=== PATIENT | female | born 1985 | race Caucasian/White ===

== ENCOUNTER 2016-06-18 18:30 | Emergency (ER) | payer OTHER ==
[~2016-06-18 18:30] MED LIST: FERR325T3 PO; LABE20TAB PO; LOVE1INJ SC; NEXI40CA PO; PERC5TAB6 PO; [UNRECOGNIZED DRUG - CODE] IJ; asprin PO; prenatal vitamins PO; vitamin B12 PO
[2016-06-18] MEDS ORDERED: ACETAMINOPHEN 325 MG TAB As Ordered ONE (19:22)
[2016-06-18 20:04] LABS: BASO % 0.3 % (0.0-1.0); EOS % 0.6 % (0.0-3.0); LARGE UNSTAINED CELL # 0.1 K/mm3 (0.0-0.4); LARGE UNSTAINED CELL % 1.2 % (0.0-4.0); LYMPH # 1.1 K/mm3 (1.5-4.5); LYMPH % 12.3 % (24.0-44.0); MEAN CORPUSCULAR HEMOGLOBIN 21.6 pg (27.0-33.0); MEAN CORPUSCULAR HGB CONC 30.3 g/dl (32.0-36.5); MEAN CORPUSCULAR VOLUME 71.3 fl (80.0-96.0); MONO # 0.3 K/mm3 (0.0-0.8); MONO % 3.7 % (0.0-5.0); NEUTROPHILS # 7.3 K/mm3 (1.8-7.7); NEUTROPHILS % 81.9 % (36.0-66.0); PLATELET COUNT, AUTOMATED 297 k/mm3 (150-450); RED CELL DISTRIBUTION WIDTH 14.8 % (11.5-14.5)
--- NOTE | 2016-06-18 20:07 | ECGEPIP ---
Stationary ECG Study [facility] - ED Test Date: 2016-06-18 Pat Name: KOURTNEY HESS Department: Room: - Gender: F Tumbler Operator: nadira : 1985 Requested By: YUKO Gomez Order Number: [id number] Reading MD: Kourtney Neri Measurements Intervals [place] Rate: 103 P: 51 GA: 148 QRS: 50 QRSD: 82 T: 41 QT: 312 QTc: 410 Interpretive Statements SINUS TACHYCARDIA ABNORMAL RHYTHM ECG Electronically Signed On 06-18-2016 20:07:01 EST by Kourtney Neri
[2016-06-18 20:08] LABS: ANION GAP 8 MEQ/L (8-16); BLOOD UREA NITROGEN 11 MG/DL (7-18); CALCIUM LEVEL 9.5 MG/DL (8.5-10.1); CARBON DIOXIDE LEVEL 27 MEQ/L (21-32); CHLORIDE LEVEL 103 MEQ/L (98-107); CREATININE FOR GFR 0.86 MG/DL (0.55-1.02); GLOMERULAR FILTRATION RATE > 60.0 (>60); GLUCOSE, FASTING 100 MG/DL (70-105); POTASSIUM SERUM 3.9 MEQ/L (3.5-5.1); SODIUM LEVEL 138 MEQ/L (136-145)
--- NOTE | 2016-06-18 21:18 | EDDOCDS ---
Nurse's Notes [facility] Name: Kourtney Hess Age: 30 yrs Sex: Female : 1985 Arrival Date: 06/18/2016 Time: 18:30 Bed 20 Private MD: TEENA CHEEK Diagnosis: Acute upper respiratory infection, unspecified-viral;Anemia, unspecified-microcytic Presentation: 06/18 18:36 Presenting complaint: Patient states: reports dizziness, "feels like I'm gonna pass ead out." Reports sob and chest pain. onset of symptoms "a few months ago," worsening today. "I just feel off, real nauseated.". 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 Adult Sepsis Screening: The patient does not have new or worsening altered mentation. Patient's respiratory rate is less than 22. Systolic blood pressure is greater than 100. Patient has a qSOFA score of 0- Negative Sepsis Screen. Suicide/Homicide risk assessment- the patient denies having any suicidal and/or homicidal ideations and does not present with any other emotional, behavioral or mental health complaints. Status: Patient is not a farm service consultant or dependent. Transition of care: patient was not received from another setting of care. 18:36 Acuity: AMELIA Level 3 ead 18:36 Method Of Arrival: Walkin/Carried/Asstd ead Triage Assessment: 18:39 General: Appears in no apparent distress, Behavior is cooperative. Pain: Location: ead chest Pain currently is 5 out of 10 on a pain scale. HIV screening NA for this visit Offered previously. Neurological: Level of Consciousness is awake, alert, Oriented to person, place, time. Neurological: Reports dizziness. Cardiovascular: Chest pain is denied is described as "real uncomfortable". radiates Does not radiate. episodes are intermittent began this morning. Respiratory: Airway is patent Respiratory effort is even, unlabored, Reports shortness of breath. GI: Reports nausea. Derm: Skin is pink, warm & dry. 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 aspirin 81 mg Oral tab once daily 2. hydroxychloroquine 200 mg oral tab once daily 3. vit b 12 1000 daily 4. omeprazole 20 mg Oral cpDR once daily 5. inhalers daily 6. labetalol 50 mg Oral tab 2 times per day - PMHx: Lupus; Hypertension; Asthma; - PSHx: D & C; Adenoidectomy; Tonsillectomy; Ear Tubes; Cesearean Section; - Social history: Smoking status: Patient states was never smoker of tobacco. No barriers to communication noted, The patient speaks fluent Bengali, Speaks appropriately for age. - Family history: No immediate family members are acutely ill. - : The pt / caregiver states he / she is not on anticoagulants. Home medication list is obtained from the patient, [employer] import data. - Exposure Risk Screening:: None identified. Screenin:45 Screening information is obtained from the patient. Fall risk: No risks identified. mb9 Assistance ADL's: requires no assistance with activities of daily living. Abuse/DV Screen: The patient / caregiver reports he/she is: not in a situation that causes fear, pain or injury. Nutritional screening: No deficits noted. Advance Directives: There is no active DNR order. home support is adequate. Assessment: 19:45 General: Appears in no apparent distress, Behavior is appropriate for age, cooperative. mb9 Pain: Denies pain. Neurological: Level of Consciousness is awake, alert, Oriented to person, place, time, Gait is steady, Speech is normal, Pupils are PERRLA. Neurological: Reports dizziness. Cardiovascular: Heart tones S1 S2 present. Respiratory: Airway is patent Respiratory effort is even, unlabored. 20:40 Reassessment: Patient appears in no apparent distress at this time. General: Appears in mb9 no apparent distress, Behavior is appropriate for age, cooperative. Pain: Denies pain. Respiratory: Airway is patent Respiratory effort is even, unlabored. Vital Signs: 18:32 BP 161 / 80; Pulse 108; Resp 18 S; Temp 100.5(O); Pulse Ox 100% on R/A; Weight 104.33 dd6 kg (R); Height 5 ft. 2 in. (157.48 cm) (R); 20:57 BP 131 / 60 (auto/); Pulse 92; Resp 17; Temp 99.5(O); Pulse Ox 98% on R/A; mb9 18:32 Body Mass Index 42.07 (104.33 kg, 157.48 cm) dd6 Vitals: 18:32 Log In Time: June 18, 2016 at 18:30. dd6 ED Course: 18:31 Patient visited by Vini Gomez PCA. dd6 18:31 Patient moved to Waiting dd6 18:32 TEENA CHEEK is Private Physician. dd6 18:32 Patient moved to Pre RCE dd6 18:35 Patient moved to PR2 / 26 rs6 18:38 Triage Initiated ead 18:41 EKG done. (by ED staff). Reviewed by Gavin GUARDADO. rs6 18:46 Patient moved to 20 mcp 18:53 Guido Cordova DO is Attending Physician. cs11 18:53 Patient visited by Guido Cordova DO. cs11 19:44 MED Profile Sent. mb9 19:44 CBC with Diff Sent. mb9 19:44 -Influenza A&B Rapid Antigen - Nose Sent. mb9 19:44 Lactic Acid (Bryant tube on ice) Sent. mb9 19:44 -Blood Culture Sent. mb9 19:45 The patient / caregiver is instructed regarding the plan of care and ED course. mb9 19:45 Inserted saline lock: 18 gauge in right antecubital area and blood collected. mb9 19:51 Patient visited by Gavin Bowling RN. mb9 19:51 [facility] Payment Agreement was scanned into [employer] and attached to record. jpb 20:33 EKG-ADULT Returned. EDMS 20:56 Patient visited by Shilpa Gupta, [employer] Plans Staff Officer. jlm 21:01 TEENA CHEEK is Referral Physician. cs11 21:16 Cardiac monitoring not applicable on this patient. mb9 21:16 Discontinued IV lock intact, bleeding controlled, pressure dressing applied, No mb9 redness/swelling at site. No procedures done that require assistance. Administered Medications: 19:44 Drug: NS 0.9% 1000 ml [sodium chloride 0.9 % intravenous solution] Route: IV; Rate: mb9 bolus; Site: left antecubital; 19:44 Drug: Acetaminophen 975 mg [acetaminophen 325 mg tablet (3 tabs)] Route: PO; mb9 Order Results: Lab Order: Lactic Acid (Bryant tube on ice); SPEC'M 06/18/16 19:40 Test: LACTIC ACID LEVEL, LACTATE; Value: 0.8; Range: 0.4-2.0; Units: MMOL/L; Status: F Lab Order: -Influenza A&B Rapid Antigen - Nose; SPEC'M 06/18/16 19:40 Test: INFLUENZA A RAPID SCR by ICA; Value: INFLUENZA A RESULTS NEGATIVE; Status: F Test: INFLUENZA A RAPID SCR by ICA; Value: Comments:; Status: F Test: INFLUENZA B RAPID SCR by ICA; Value: INFLUENZA B RESULTS NEGATIVE; Status: F Test Note: ; The Influenza test is a direct rapid immunoassay for the qualitative detection of Influenza viral antigen. Cell culture (Viral Culture) testing should be considered to confirm NEGATIVE results and to assist in detecting other viruses that can provide similar clinical symptoms. Please contact the lab within 24 hours ([phone]) if confirmatory testing is desired. Lab Order: CBC with Diff; SPEC'M 06/18/16 19:40 Test: WHITE BLOOD COUNT; Value: 9.0; Range: 4.0-10.0; Units: K/mm3; Status: F Test: RED BLOOD COUNT; Value: 3.86; Range: 4.00-5.40; Abnormal: Below low normal; Units: M/mm3; Status: F Test: HEMOGLOBIN; Value: 8.3; Range: 12.0-16.0; Abnormal: Below low normal; Units: g/dl; Status: F Test: HEMATOCRIT; Value: 27.5; Range: 36.0-47.0; Abnormal: Below low normal; Units: %; Status: F Test: MEAN CORPUSCULAR VOLUME; Value: 71.3; Range: 80.0-96.0; Abnormal: Below low normal; Units: fl; Status: F Test: MEAN CORPUSCULAR HEMOGLOBIN; Value: 21.6; Range: 27.0-33.0; Abnormal: Below low normal; Units: pg; Status: F Test: MEAN CORPUSCULAR HGB CONC; Value: 30.3; Range: 32.0-36.5; Abnormal: Below low normal; Units: g/dl; Status: F Test: RED CELL DISTRIBUTION WIDTH; Value: 14.8; Range: 11.5-14.5; Abnormal: Above high normal; Units: %; Status: F Test: PLATELET COUNT, AUTOMATED; Value: 297; Range: 150-450; Units: k/mm3; Status: F Test: NEUTROPHILS %; Value: 81.9; Range: 36.0-66.0; Abnormal: Above high normal; Units: %; Status: F Test: LYMPH %; Value: 12.3; Range: 24.0-44.0; Abnormal: Below low normal; Units: %; Status: F Test: MONO %; Value: 3.7; Range: 0.0-5.0; Units: %; Status: F Test: EOS %; Value: 0.6; Range: 0.0-3.0; Units: %; Status: F Test: BASO %; Value: 0.3; Range: 0.0-1.0; Units: %; Status: F Test: LARGE UNSTAINED CELL %; Value: 1.2; Range: 0.0-4.0; Units: %; Status: F Test: NEUTROPHILS #; Value: 7.3; Range: 1.8-7.7; Units: K/mm3; Status: F Test: LYMPH #; Value: 1.1; Range: 1.5-4.5; Abnormal: Below low normal; Units: K/mm3; Status: F Test: MONO #; Value: 0.3; Range: 0.0-0.8; Units: K/mm3; Status: F Test: EOS #; Value: 0.0; Range: 0.0-0.50; Units: K/mm3; Status: F Test: BASO #; Value: 0.0; Range: 0.0-0.2; Units: K/mm3; Status: F Test: LARGE UNSTAINED CELL #; Value: 0.1; Range: 0.0-0.4; Units: K/mm3; Status: F Lab Order: MED Profile; SPEC'M 06/18/16 19:40 Test: GLUCOSE, FASTING; Value: 100; Range: 70-105; Units: MG/DL; Status: F Test: BLOOD UREA NITROGEN; Value: 11; Range: 7-18; Units: MG/DL; Status: F Test: CREATININE FOR GFR; Value: 0.86; Range: 0.55-1.02; Units: MG/DL; Status: F Test: GLOMERULAR FILTRATION RATE; Value: > 60.0; Range: >60; Status: F Test: SODIUM LEVEL; Value: 138; Range: 136-145; Units: MEQ/L; Status: F Test: POTASSIUM SERUM; Value: 3.9; Range: 3.5-5.1; Units: MEQ/L; Status: F Test: CHLORIDE LEVEL; Value: 103; Range: 98-107; Units: MEQ/L; Status: F Test: CARBON DIOXIDE LEVEL; Value: 27; Range: 21-32; Units: MEQ/L; Status: F Test: ANION GAP; Value: 8; Range: 8-16; Units: MEQ/L; Status: F Test: CALCIUM LEVEL; Value: 9.5; Range: 8.5-10.1; Units: MG/DL; Status: F Test Note: ; Units are mL/min/1.73 m2 Chronic Kidney Disease Staging per NKF: Stage I & II GFR >=60 Normal to Mildly Decreased Stage III GFR 30-59 Moderately Decreased Stage IV GFR 15-29 Severely Decreased Stage V GFR <15 Very Little GFR Left ESRD GFR <15 on ADOLESCENT COUNSELOR Radiology Order: EKG-ADULT Test: EKG-ADULT REASON FOR EXAMINATION: Chest Pain; Stationary ECG Study; [facility] - ED; ; Test Date: 2016-06-18; Pat Name: KOURTNEY HESS Department:; Room: -; Gender: F It 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 cs11 21:16 Discharge Assessment: Patient awake, alert and oriented x 3. No cognitive and/or mb9 functional deficits noted. Patient verbalized understanding of disposition instructions. patient administered narcotics - no. The following High Risk Discharge criteria are identified: None. Discharged to home ambulatory. Condition: good Condition: stable Condition: improved. Discharge instructions given to patient, Instructed on discharge instructions, follow up and referral plans. medication usage, Demonstrated understanding of instructions, medications, Pt was receptive of discharge instructions/ teaching. No special radiology studies were completed. Property :Personal belongings accompany Pt. 21:17 Patient left the ED. alanis Signatures: Dispatcher [employer] Nancy Teague, RN RN Vini Brandon, ALUMNI SECRETARY ALUMNI SECRETARY dd6 Renny Gutierres Craig, DO cs11 Rosaura Graff,RN RN Shilpa Ford, [employer] Plans Staff Officer Unit Gavin Soto RN RN Joycelyn Webb, ALUMNI SECRETARY ALUMNI SECRETARY rs6 [facility]
--- NOTE | 2016-06-18 21:18 | EDDOCDS ---
Physician Documentation [facility] Name: Korutney Francisco Age: 30 yrs Sex: Female : 1985 Arrival Date: 06/18/2016 Time: 18:30 Bed 20 Private MD: TEENA CHEEK Disposition: 06/18/16 21:02 Discharged to Home/Self Care. Impression: Acute upper respiratory infection, unspecified - viral, Anemia, unspecified - microcytic. - Condition is Stable. - Medication Reconciliation, Local Pharmacy Hours form. - Follow up: TEENA CHEEK; When: 1 - 2 days; Reason: Recheck today's complaints. - Problem is chronic. - Symptoms are unchanged. Historical: - Allergies: SULFA (SULFONAMIDES) (Rash); - Home Meds: 1. aspirin 81 mg Oral tab once daily 2. hydroxychloroquine 200 mg oral tab once daily 3. vit b 12 1000 daily 4. omeprazole 20 mg Oral cpDR once daily 5. inhalers daily 6. labetalol 50 mg Oral tab 2 times per day - PMHx: Lupus; Hypertension; Asthma; - PSHx: D & C; Adenoidectomy; Tonsillectomy; Ear Tubes; Cesearean Section; - Social history: Smoking status: Patient states was never smoker of tobacco. No barriers to communication noted, The patient speaks fluent Pashto, Speaks appropriately for age. - Family history: No immediate family members are acutely ill. - : The pt / caregiver states he / she is not on anticoagulants. Home medication list is obtained from the patient, [employer] import data. - Exposure Risk Screening:: None identified. 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 2 in. (157.48 cm) (R); 20:57 BP 131 / 60 (auto/); Pulse 92; Resp 17; Temp 99.5(O); Pulse Ox 98% on R/A; mb9 18:32 Body Mass Index 42.07 (104.33 kg, 157.48 cm) dd6 MDM: 18:36 ECG WITH READING ER PHYS+CARDIAG ordered. EDMS 18:57 Chest, 2 View (pa\E\lat) Ordered. EDMS 19:17 IV Saline Lock ordered. cs11 19:17 -Blood Culture (Adults Only), peripheral from different site, or from device/port/PICC cs11 etc. if present ordered. 19:17 NS 0.9% 1000 ml IV at bolus once ordered. cs11 19:17 Acetaminophen Tablet 975 mg PO once ordered. cs11 19:18 -Blood Culture (Adults Only), peripheral from different site, or from device/port/PICC sew etc. if present complete. 19:18 Lactic Acid (Bryant tube on ice) Ordered. EDMS 19:18 CBC with Diff Ordered. EDMS 19:18 MED Profile Ordered. EDMS 19:18 -Blood Culture Ordered. EDMS 19:18 -Influenza A&B Rapid Antigen - Nose Ordered. EDMS 19:21 BLOOD CULTURES Ordered. EDMS 19:51 Financial registration complete. jpb 19:51 [facility] Payment Agreement was scanned into [employer] and attached to record. jpb 20:36 CBC with Diff Reviewed. cs11 20:36 Lactic Acid (Bryant tube on ice) Reviewed. cs11 20:36 -Influenza A&B Rapid Antigen - Nose Reviewed. cs11 20:36 MED Profile Reviewed. cs11 20:36 EKG-ADULT Reviewed. cs11 Administered Medications: 19:44 Drug: NS 0.9% 1000 ml [sodium chloride 0.9 % intravenous solution] Route: IV; Rate: mb9 bolus; Site: left antecubital; 19:44 Drug: Acetaminophen 975 mg [acetaminophen 325 mg tablet (3 tabs)] Route: PO; mb9 Signatures: Dispatcher [employer] EDMS Renny Gutierres Sarah sew Schiff, Craig, DO DO cs11 Rosaura Graff RN RN Gavin Castellanos RN RN mb9 The chart was reviewed and I authenticate all verbal orders and agree with the evaluation and treatment provided.Attachments: 19:51 [facility] Payment Agreement jpb MTDD
--- NOTE | 2016-06-18 21:49 | REP ---
Clinical: Acute cough . Comparison: 07/03/2015 . Technique: PA and lateral. Findings: The mediastinum and cardiac silhouette are normal. The lung singh are clear and without acute consolidation, effusion, or pneumothorax. The skeletal structures are intact and normal. Impression: 1. No acute cardiopulmonary process. Signed by Brandon Larkin MD 06/18/2016 09:41 P
--- NOTE | 2016-06-20 22:18 | EDDOCDS ---
Nurse's Notes [facility] Name: Kourtney Francisco Age: 30 yrs Sex: Female : 1985 Arrival Date: 06/18/2016 Time: 18:30 Bed 20 Private MD: TEENA CHEEK Diagnosis: Acute upper respiratory infection, unspecified-viral;Anemia, unspecified-microcytic Presentation: 06/18 18:36 Presenting complaint: Patient states: reports dizziness, "feels like I'm gonna pass ead out." Reports sob and chest pain. onset of symptoms "a few months ago," worsening today. "I just feel off, real nauseated.". 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 81 mg this morning. Adult Sepsis Screening: The patient does not have new or worsening altered mentation. Patient's respiratory rate is less than 22. Systolic blood pressure is greater than 100. Patient has a qSOFA score of 0- Negative Sepsis Screen. Suicide/Homicide risk assessment- the patient denies having any suicidal and/or homicidal ideations and does not present with any other emotional, behavioral or mental health complaints. Status: Patient is not a administrative services manager or dependent. Transition of care: patient was not received from another setting of care. 18:36 Acuity: AMELIA Level 3 ead 18:36 Method Of Arrival: Walkin/Carried/Asstd ead Triage Assessment: 18:39 General: Appears in no apparent distress, Behavior is cooperative. Pain: Location: ead chest Pain currently is 5 out of 10 on a pain scale. HIV screening NA for this visit Offered previously. Neurological: Level of Consciousness is awake, alert, Oriented to person, place, time. Neurological: Reports dizziness. Cardiovascular: Chest pain is denied is described as "real uncomfortable". radiates Does not radiate. episodes are intermittent began this morning. Respiratory: Airway is patent Respiratory effort is even, unlabored, Reports shortness of breath. GI: Reports nausea. Derm: Skin is pink, warm & dry. 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 aspirin 81 mg Oral tab once daily 2. hydroxychloroquine 200 mg oral tab once daily 3. vit b 12 1000 daily 4. omeprazole 20 mg Oral cpDR once daily 5. inhalers daily 6. labetalol 50 mg Oral tab 2 times per day - PMHx: Lupus; Hypertension; Asthma; - PSHx: D & C; Adenoidectomy; Tonsillectomy; Ear Tubes; Cesearean Section; - Social history: Smoking status: Patient states was never smoker of tobacco. No barriers to communication noted, The patient speaks fluent Pashto, Speaks appropriately for age. - Family history: No immediate family members are acutely ill. - : The pt / caregiver states he / she is not on anticoagulants. Home medication list is obtained from the patient, [employer] import data. - Exposure Risk Screening:: None identified. Screenin:45 Screening information is obtained from the patient. Fall risk: No risks identified. mb9 Assistance ADL's: requires no assistance with activities of daily living. Abuse/DV Screen: The patient / caregiver reports he/she is: not in a situation that causes fear, pain or injury. Nutritional screening: No deficits noted. Advance Directives: There is no active DNR order. home support is adequate. Assessment: 19:45 General: Appears in no apparent distress, Behavior is appropriate for age, cooperative. mb9 Pain: Denies pain. Neurological: Level of Consciousness is awake, alert, Oriented to person, place, time, Gait is steady, Speech is normal, Pupils are PERRLA. Neurological: Reports dizziness. Cardiovascular: Heart tones S1 S2 present. Respiratory: Airway is patent Respiratory effort is even, unlabored. 20:40 Reassessment: Patient appears in no apparent distress at this time. General: Appears in mb9 no apparent distress, Behavior is appropriate for age, cooperative. Pain: Denies pain. Respiratory: Airway is patent Respiratory effort is even, unlabored. Vital Signs: 18:32 BP 161 / 80; Pulse 108; Resp 18 S; Temp 100.5(O); Pulse Ox 100% on R/A; Weight 104.33 dd6 kg (R); Height 5 ft. 2 in. (157.48 cm) (R); 20:57 BP 131 / 60 (auto/); Pulse 92; Resp 17; Temp 99.5(O); Pulse Ox 98% on R/A; mb9 18:32 Body Mass Index 42.07 (104.33 kg, 157.48 cm) dd6 Vitals: 18:32 Log In Time: June 18, 2016 at 18:30. dd6 ED Course: 18:31 Patient visited by Vini Gomez PCA. dd6 18:31 Patient moved to Waiting dd6 18:32 TEENA CHEEK is Private Physician. dd6 18:32 Patient moved to Pre RCE dd6 18:35 Patient moved to PR2 / 26 rs6 18:38 Triage Initiated ead 18:41 EKG done. (by ED staff). Reviewed by Gavin GUARDADO. rs6 18:46 Patient moved to 20 mcp 18:53 Guido Cordova DO is Attending Physician. cs11 18:53 Patient visited by Guido Cordova DO. cs11 19:44 MED Profile Sent. mb9 19:44 CBC with Diff Sent. mb9 19:44 -Influenza A&B Rapid Antigen - Nose Sent. mb9 19:44 Lactic Acid (Bryant tube on ice) Sent. mb9 19:44 -Blood Culture Sent. mb9 19:45 The patient / caregiver is instructed regarding the plan of care and ED course. mb9 19:45 Inserted saline lock: 18 gauge in right antecubital area and blood collected. mb9 19:51 Patient visited by Gavin Bowling RN. mb9 19:51 [facility] Payment Agreement was scanned into [employer] and attached to record. jpb 20:33 EKG-ADULT Returned. EDMS 20:56 Patient visited by Shilpa Gupta, Mid Teacher. jlm 21:01 TEENA CHEEK is Referral Physician. cs11 21:16 Cardiac monitoring not applicable on this patient. mb9 21:16 Discontinued IV lock intact, bleeding controlled, pressure dressing applied, No mb9 redness/swelling at site. No procedures done that require assistance. 22:32 Chest, 2 View (pa\\E\\lat) Returned. EDMS 06/20 08:18 T-Sheet-- Draft Copy was scanned into [employer] and attached to record. gb Administered Medications: 06/18 19:44 Drug: NS 0.9% 1000 ml [sodium chloride 0.9 % intravenous solution] Route: IV; Rate: mb9 bolus; Site: left antecubital; 19:44 Drug: Acetaminophen 975 mg [acetaminophen 325 mg tablet (3 tabs)] Route: PO; mb9 Order Results: Lab Order: -Blood Culture; SPEC'M 06/18/16 20:08 Test: BLOOD CULTURE; Value: No growth after 24 hours . All specimens observed; Status: F Test: BLOOD CULTURE; Value: for 5 days. Results final at that time.; Status: F Test: BLOOD CULTURE; Value: No Growth after 48 hours. All Specimens observed; Status: F Test: BLOOD CULTURE; Value: for 7 days. Results final at that time.; Status: F Lab Order: Lactic Acid (Bryant tube on ice); SPEC'M 06/18/16 19:40 Test: LACTIC ACID LEVEL, LACTATE; Value: 0.8; Range: 0.4-2.0; Units: MMOL/L; Status: F Lab Order: -Influenza A&B Rapid Antigen - Nose; SPEC'M 06/18/16 19:40 Test: INFLUENZA A RAPID SCR by ICA; Value: INFLUENZA A RESULTS NEGATIVE; Status: F Test: INFLUENZA A RAPID SCR by ICA; Value: Comments:; Status: F Test: INFLUENZA B RAPID SCR by ICA; Value: INFLUENZA B RESULTS NEGATIVE; Status: F Test Note: ; The Influenza test is a direct rapid immunoassay for the qualitative detection of Influenza viral antigen. Cell culture (Viral Culture) testing should be considered to confirm NEGATIVE results and to assist in detecting other viruses that can provide similar clinical symptoms. Please contact the lab within 24 hours ([phone]) if confirmatory testing is desired. Lab Order: CBC with Diff; SPEC'M 06/18/16 19:40 Test: WHITE BLOOD COUNT; Value: 9.0; Range: 4.0-10.0; Units: K/mm3; Status: F Test: RED BLOOD COUNT; Value: 3.86; Range: 4.00-5.40; Abnormal: Below low normal; Units: M/mm3; Status: F Test: HEMOGLOBIN; Value: 8.3; Range: 12.0-16.0; Abnormal: Below low normal; Units: g/dl; Status: F Test: HEMATOCRIT; Value: 27.5; Range: 36.0-47.0; Abnormal: Below low normal; Units: %; Status: F Test: MEAN CORPUSCULAR VOLUME; Value: 71.3; Range: 80.0-96.0; Abnormal: Below low normal; Units: fl; Status: F Test: MEAN CORPUSCULAR HEMOGLOBIN; Value: 21.6; Range: 27.0-33.0; Abnormal: Below low normal; Units: pg; Status: F Test: MEAN CORPUSCULAR HGB CONC; Value: 30.3; Range: 32.0-36.5; Abnormal: Below low normal; Units: g/dl; Status: F Test: RED CELL DISTRIBUTION WIDTH; Value: 14.8; Range: 11.5-14.5; Abnormal: Above high normal; Units: %; Status: F Test: PLATELET COUNT, AUTOMATED; Value: 297; Range: 150-450; Units: k/mm3; Status: F Test: NEUTROPHILS %; Value: 81.9; Range: 36.0-66.0; Abnormal: Above high normal; Units: %; Status: F Test: LYMPH %; Value: 12.3; Range: 24.0-44.0; Abnormal: Below low normal; Units: %; Status: F Test: MONO %; Value: 3.7; Range: 0.0-5.0; Units: %; Status: F Test: EOS %; Value: 0.6; Range: 0.0-3.0; Units: %; Status: F Test: BASO %; Value: 0.3; Range: 0.0-1.0; Units: %; Status: F Test: LARGE UNSTAINED CELL %; Value: 1.2; Range: 0.0-4.0; Units: %; Status: F Test: NEUTROPHILS #; Value: 7.3; Range: 1.8-7.7; Units: K/mm3; Status: F Test: LYMPH #; Value: 1.1; Range: 1.5-4.5; Abnormal: Below low normal; Units: K/mm3; Status: F Test: MONO #; Value: 0.3; Range: 0.0-0.8; Units: K/mm3; Status: F Test: EOS #; Value: 0.0; Range: 0.0-0.50; Units: K/mm3; Status: F Test: BASO #; Value: 0.0; Range: 0.0-0.2; Units: K/mm3; Status: F Test: LARGE UNSTAINED CELL #; Value: 0.1; Range: 0.0-0.4; Units: K/mm3; Status: F Lab Order: MED Profile; SPEC'M 06/18/16 19:40 Test: GLUCOSE, FASTING; Value: 100; Range: 70-105; Units: MG/DL; Status: F Test: BLOOD UREA NITROGEN; Value: 11; Range: 7-18; Units: MG/DL; Status: F Test: CREATININE FOR GFR; Value: 0.86; Range: 0.55-1.02; Units: MG/DL; Status: F Test: GLOMERULAR FILTRATION RATE; Value: > 60.0; Range: >60; Status: F Test: SODIUM LEVEL; Value: 138; Range: 136-145; Units: MEQ/L; Status: F Test: POTASSIUM SERUM; Value: 3.9; Range: 3.5-5.1; Units: MEQ/L; Status: F Test: CHLORIDE LEVEL; Value: 103; Range: 98-107; Units: MEQ/L; Status: F Test: CARBON DIOXIDE LEVEL; Value: 27; Range: 21-32; Units: MEQ/L; Status: F Test: ANION GAP; Value: 8; Range: 8-16; Units: MEQ/L; Status: F Test: CALCIUM LEVEL; Value: 9.5; Range: 8.5-10.1; Units: MG/DL; Status: F Test Note: ; Units are mL/min/1.73 m2 Chronic Kidney Disease Staging per NKF: Stage I & II GFR >=60 Normal to Mildly Decreased Stage III GFR 30-59 Moderately Decreased Stage IV GFR 15-29 Severely Decreased Stage V GFR <15 Very Little GFR Left ESRD GFR <15 on ELECTRIC FREIGHT CAR OPERATOR Lab Order: BLOOD CULTURES; SPEC'M 06/18/16 19:40 Test: BLOOD CULTURE; Value: No growth after 24 hours . All specimens observed; Status: F Test: BLOOD CULTURE; Value: for 5 days. Results final at that time.; Status: F Test: BLOOD CULTURE; Value: No Growth after 48 hours. All Specimens observed; Status: F Test: BLOOD CULTURE; Value: for 7 days. 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 The lung singh are clear and; without acute consolidation, effusion, or pneumothorax. The skeletal structures; are intact and normal.; ; Impression:; 1. No acute cardiopulmonary process.; ; ; Signed by; Brandon Larkin MD 06/18/2016 09:41 P; Outcome: 21:02 Discharge ordered by Provider. cs11 21:16 Discharge Assessment: Patient awake, alert and oriented x 3. No cognitive and/or mb9 functional deficits noted. Patient verbalized understanding of disposition instructions. patient administered narcotics - no. The following High Risk Discharge criteria are identified: None. Discharged to home ambulatory. Condition: good Condition: stable Condition: improved. Discharge instructions given to patient, Instructed on discharge instructions, follow up and referral plans. medication usage, Demonstrated understanding of instructions, medications, Pt was receptive of discharge instructions/ teaching. No special radiology studies were completed. Property :Personal belongings accompany Pt. 21:17 Patient left the ED. [email or web address] Signatures: Dispatcher [employer] Nancy Teague, RN Fabiola Murphy mcp, Ward Reg Vini Orozco, WOODS OVERSEER WOODS OVERSEER dd6 Renny Gutierres Craig, DO DO cs11 Rosaura Graff RN RN ead Mitchell, Jessie, Mid Teacher Unit jlm Belles,Gavin,RN RN mb9 Rollins, Joycelyn, WOODS OVERSEER WOODS OVERSEER rs6 Chart Complete MTDD
--- NOTE | 2016-06-20 22:18 | EDDOCDS ---
Physician Documentation [facility] Name: Kourtney Francisco Age: 30 yrs Sex: Female : 1985 Arrival Date: 06/18/2016 Time: 18:30 Bed 20 Private MD: TEENA CHEEK Disposition: 06/18/16 21:02 Discharged to Home/Self Care. Impression: Acute upper respiratory infection, unspecified - viral, Anemia, unspecified - microcytic. - Condition is Stable. - Medication Reconciliation, Local Pharmacy Hours form. - Follow up: TEENA CHEEK; When: 1 - 2 days; Reason: Recheck today's complaints. - Problem is chronic. - Symptoms are unchanged. Historical: - Allergies: SULFA (SULFONAMIDES) (Rash); - Home Meds: 1. aspirin 81 mg Oral tab once daily 2. hydroxychloroquine 200 mg oral tab once daily 3. vit b 12 1000 daily 4. omeprazole 20 mg Oral cpDR once daily 5. inhalers daily 6. labetalol 50 mg Oral tab 2 times per day - PMHx: Lupus; Hypertension; Asthma; - PSHx: D & C; Adenoidectomy; Tonsillectomy; Ear Tubes; Cesearean Section; - Social history: Smoking status: Patient states was never smoker of tobacco. No barriers to communication noted, The patient speaks fluent Japanese, Speaks appropriately for age. - Family history: No immediate family members are acutely ill. - : The pt / caregiver states he / she is not on anticoagulants. Home medication list is obtained from the patient, [employer] import data. - Exposure Risk Screening:: None identified. 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 2 in. (157.48 cm) (R); 20:57 BP 131 / 60 (auto/); Pulse 92; Resp 17; Temp 99.5(O); Pulse Ox 98% on R/A; mb9 18:32 Body Mass Index 42.07 (104.33 kg, 157.48 cm) dd6 MDM: 18:36 ECG WITH READING ER PHYS+CARDIAG ordered. EDMS 18:57 Chest, 2 View (pa\E\lat) Ordered. EDMS 19:17 IV Saline Lock ordered. cs11 19:17 -Blood Culture (Adults Only), peripheral from different site, or from device/port/PICC cs11 etc. if present ordered. 19:17 NS 0.9% 1000 ml IV at bolus once ordered. cs11 19:17 Acetaminophen Tablet 975 mg PO once ordered. cs11 19:18 -Blood Culture (Adults Only), peripheral from different site, or from device/port/PICC sew etc. if present complete. 19:18 Lactic Acid (Bryant tube on ice) Ordered. EDMS 19:18 CBC with Diff Ordered. EDMS 19:18 MED Profile Ordered. EDMS 19:18 -Blood Culture Ordered. EDMS 19:18 -Influenza A&B Rapid Antigen - Nose Ordered. EDMS 19:21 BLOOD CULTURES Ordered. EDMS 19:51 Financial registration complete. jpb 19:51 [facility] Payment Agreement was scanned into [employer] and attached to record. jpb 20:36 CBC with Diff Reviewed. cs11 20:36 Lactic Acid (Bryant tube on ice) Reviewed. cs11 20:36 -Influenza A&B Rapid Antigen - Nose Reviewed. cs11 20:36 MED Profile Reviewed. cs11 20:36 EKG-ADULT Reviewed. 11 06/20 08:18 T-Sheet-- Draft Copy was scanned into [employer] and attached to record. gb Administered Medications: 06/18 19:44 Drug: NS 0.9% 1000 ml [sodium chloride 0.9 % intravenous solution] Route: IV; Rate: mb9 bolus; Site: left antecubital; 19:44 Drug: Acetaminophen 975 mg [acetaminophen 325 mg tablet (3 tabs)] Route: PO; mb9 Signatures: Dispatcher [employer] EDMS Fabiola Dye, Renny Martínez Sarah sew Schiff, Craig, DO DO cs11 Rosaura Graff RN RN ead Belles, Michael, RN RN mb9 The chart was reviewed and I authenticate all verbal orders and agree with the evaluation and treatment provided.Attachments: 19:51 [facility] Payment Agreement [facility] 06/20 08:18 T-Sheet-- Draft Copy gb Chart Complete MTDD
--- NOTE | 2016-06-20 22:19 | EDDOCDS ---
Physician Documentation [facility] Name: Kourtney Francisco Age: 30 yrs Sex: Female : 1985 Arrival Date: 06/18/2016 Time: 18:30 Bed 20 Private MD: TEENA CHEEK Disposition: 06/18/16 21:02 Discharged to Home/Self Care. Impression: Acute upper respiratory infection, unspecified - viral, Anemia, unspecified - microcytic. - Condition is Stable. - Medication Reconciliation, Local Pharmacy Hours form. - Follow up: TEENA CHEEK; When: 1 - 2 days; Reason: Recheck today's complaints. - Problem is chronic. - Symptoms are unchanged. Historical: - Allergies: SULFA (SULFONAMIDES) (Rash); - Home Meds: 1. aspirin 81 mg Oral tab once daily 2. hydroxychloroquine 200 mg oral tab once daily 3. vit b 12 1000 daily 4. omeprazole 20 mg Oral cpDR once daily 5. inhalers daily 6. labetalol 50 mg Oral tab 2 times per day - PMHx: Lupus; Hypertension; Asthma; - PSHx: D & C; Adenoidectomy; Tonsillectomy; Ear Tubes; Cesearean Section; - Social history: Smoking status: Patient states was never smoker of tobacco. No barriers to communication noted, The patient speaks fluent Irish, Speaks appropriately for age. - Family history: No immediate family members are acutely ill. - : The pt / caregiver states he / she is not on anticoagulants. Home medication list is obtained from the patient, [employer] import data. - Exposure Risk Screening:: None identified. RECREATION COORDINATOR: 06/18 18:39 LMP 05/2016 ead Vital Signs: 18:32 BP 161 / 80; Pulse 108; Resp 18 S; Temp 100.5(O); Pulse Ox 100% on R/A; Weight 104.33 dd6 kg / 230.01 lbs (R); Height 5 ft. 2 in. (157.48 cm) (R); 20:57 BP 131 / 60 (auto/); Pulse 92; Resp 17; Temp 99.5(O); Pulse Ox 98% on R/A; mb9 18:32 Body Mass Index 42.07 (104.33 kg, 157.48 cm) dd6 MDM: 18:36 ECG WITH READING ER PHYS+CARDIAG ordered. EDMS 18:57 Chest, 2 View (pa\E\lat) Ordered. EDMS 19:17 IV Saline Lock ordered. cs11 19:17 -Blood Culture (Adults Only), peripheral from different site, or from device/port/PICC cs11 etc. if present ordered. 19:17 NS 0.9% 1000 ml IV at bolus once ordered. cs11 19:17 Acetaminophen Tablet 975 mg PO once ordered. cs11 19:18 -Blood Culture (Adults Only), peripheral from different site, or from device/port/PICC sew etc. if present complete. 19:18 Lactic Acid (Bryant tube on ice) Ordered. EDMS 19:18 CBC with Diff Ordered. EDMS 19:18 MED Profile Ordered. EDMS 19:18 -Blood Culture Ordered. EDMS 19:18 -Influenza A&B Rapid Antigen - Nose Ordered. EDMS 19:21 BLOOD CULTURES Ordered. EDMS 19:51 Financial registration complete. jpb 19:51 [facility] Payment Agreement was scanned into [email or web address] and attached to record. jpb 20:36 CBC with Diff Reviewed. cs11 20:36 Lactic Acid (Bryant tube on ice) Reviewed. cs11 20:36 -Influenza A&B Rapid Antigen - Nose Reviewed. cs11 20:36 MED Profile Reviewed. cs11 20:36 EKG-ADULT Reviewed. 11 06/20 08:18 T-Sheet-- Draft Copy was scanned into [email or web address] and attached to record. gb Administered Medications: 06/18 19:44 Drug: NS 0.9% 1000 ml [sodium chloride 0.9 % intravenous solution] Route: IV; Rate: mb9 bolus; Site: left antecubital; 19:44 Drug: Acetaminophen 975 mg [acetaminophen 325 mg tablet (3 tabs)] Route: PO; mb9 Signatures: Dispatcher [employer] EDMS Fabiola Dye, Renny Martínez Sarah sew Schiff, Craig, DO DO cs11 Rosaura Graff RN RN ead Belles, Michael, RN RN mb9 The chart was reviewed and I authenticate all verbal orders and agree with the evaluation and treatment provided.Attachments: 19:51 [facility] Payment Agreement [facility] 06/20 08:18 T-Sheet-- Draft Copy gb Chart Complete MTDD
--- NOTE | 2016-06-22 14:00 | EDDOCDS ---
Physician Documentation [facility] Name: Kourtney Francisco Age: 30 yrs Sex: Female : 1985 Arrival Date: 06/18/2016 Time: 18:30 Bed 20 Private MD: TEENA CHEEK Disposition: 06/18/16 21:02 Discharged to Home/Self Care. Impression: Acute upper respiratory infection, unspecified - viral, Anemia, unspecified - microcytic. - Condition is Stable. - Medication Reconciliation, Local Pharmacy Hours form. - Follow up: TEENA CHEEK; When: 1 - 2 days; Reason: Recheck today's complaints. - Problem is chronic. - Symptoms are unchanged. Historical: - Allergies: SULFA (SULFONAMIDES) (Rash); - Home Meds: 1. aspirin 81 mg Oral tab once daily 2. hydroxychloroquine 200 mg oral tab once daily 3. vit b 12 1000 daily 4. omeprazole 20 mg Oral cpDR once daily 5. inhalers daily 6. labetalol 50 mg Oral tab 2 times per day - PMHx: Lupus; Hypertension; Asthma; - PSHx: D & C; Adenoidectomy; Tonsillectomy; Ear Tubes; Cesearean Section; - Social history: Smoking status: Patient states was never smoker of tobacco. No barriers to communication noted, The patient speaks fluent Korean, Speaks appropriately for age. - Family history: No immediate family members are acutely ill. - : The pt / caregiver states he / she is not on anticoagulants. Home medication list is obtained from the patient, [employer] import data. - Exposure Risk Screening:: None identified. 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 2 in. (157.48 cm) (R); 20:57 BP 131 / 60 (auto/); Pulse 92; Resp 17; Temp 99.5(O); Pulse Ox 98% on R/A; mb9 18:32 Body Mass Index 42.07 (104.33 kg, 157.48 cm) dd6 MDM: 18:36 ECG WITH READING ER PHYS+CARDIAG ordered. EDMS 18:57 Chest, 2 View (pa\E\lat) Ordered. EDMS 19:17 IV Saline Lock ordered. cs11 19:17 -Blood Culture (Adults Only), peripheral from different site, or from device/port/PICC cs11 etc. if present ordered. 19:17 NS 0.9% 1000 ml IV at bolus once ordered. cs11 19:17 Acetaminophen Tablet 975 mg PO once ordered. cs11 19:18 -Blood Culture (Adults Only), peripheral from different site, or from device/port/PICC sew etc. if present complete. 19:18 Lactic Acid (Bryant tube on ice) Ordered. EDMS 19:18 CBC with Diff Ordered. EDMS 19:18 MED Profile Ordered. EDMS 19:18 -Blood Culture Ordered. EDMS 19:18 -Influenza A&B Rapid Antigen - Nose Ordered. EDMS 19:21 BLOOD CULTURES Ordered. EDMS 19:51 Financial registration complete. jpb 19:51 [facility] Payment Agreement was scanned into [employer] and attached to record. jpb 20:36 CBC with Diff Reviewed. cs11 20:36 Lactic Acid (Bryant tube on ice) Reviewed. cs11 20:36 -Influenza A&B Rapid Antigen - Nose Reviewed. cs11 20:36 MED Profile Reviewed. cs11 20:36 EKG-ADULT Reviewed. 11 06/20 08:18 T-Sheet-- Draft Copy was scanned into [employer] and attached to record. gb Administered Medications: 06/18 19:44 Drug: NS 0.9% 1000 ml [sodium chloride 0.9 % intravenous solution] Route: IV; Rate: mb9 bolus; Site: left antecubital; 19:44 Drug: Acetaminophen 975 mg [acetaminophen 325 mg tablet (3 tabs)] Route: PO; mb9 Signatures: Dispatcher [employer] EDMS Fabiola Dye, Renny Martínez Sarah sew Schiff, Craig, DO DO cs11 Rosaura Graff RN RN ead Belles, Michael, RN RN mb9 The chart was reviewed and I authenticate all verbal orders and agree with the evaluation and treatment provided.Attachments: 19:51 [facility] Payment Agreement [facility] 06/20 08:18 T-Sheet-- Draft Copy gb Chart Complete MTDD
--- NOTE | 2016-06-22 14:00 | EDDOCDS ---
Physician Documentation [facility] Name: Kourtney Francisco Age: 30 yrs Sex: Female : 1985 Arrival Date: 06/18/2016 Time: 18:30 Bed 20 Private MD: TEENA CHEEK Disposition: 06/18/16 21:02 Discharged to Home/Self Care. Impression: Acute upper respiratory infection, unspecified - viral, Anemia, unspecified - microcytic. - Condition is Stable. - Medication Reconciliation, Local Pharmacy Hours form. - Follow up: TEENA CHEEK; When: 1 - 2 days; Reason: Recheck today's complaints. - Problem is chronic. - Symptoms are unchanged. Historical: - Allergies: SULFA (SULFONAMIDES) (Rash); - Home Meds: 1. aspirin 81 mg Oral tab once daily 2. hydroxychloroquine 200 mg oral tab once daily 3. vit b 12 1000 daily 4. omeprazole 20 mg Oral cpDR once daily 5. inhalers daily 6. labetalol 50 mg Oral tab 2 times per day - PMHx: Lupus; Hypertension; Asthma; - PSHx: D & C; Adenoidectomy; Tonsillectomy; Ear Tubes; Cesearean Section; - Social history: Smoking status: Patient states was never smoker of tobacco. No barriers to communication noted, The patient speaks fluent Yoruba, Speaks appropriately for age. - Family history: No immediate family members are acutely ill. - : The pt / caregiver states he / she is not on anticoagulants. Home medication list is obtained from the patient, [employer] import data. - Exposure Risk Screening:: None identified. 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 2 in. (157.48 cm) (R); 20:57 BP 131 / 60 (auto/); Pulse 92; Resp 17; Temp 99.5(O); Pulse Ox 98% on R/A; mb9 18:32 Body Mass Index 42.07 (104.33 kg, 157.48 cm) dd6 MDM: 18:36 ECG WITH READING ER PHYS+CARDIAG ordered. EDMS 18:57 Chest, 2 View (pa\E\lat) Ordered. EDMS 19:17 IV Saline Lock ordered. cs11 19:17 -Blood Culture (Adults Only), peripheral from different site, or from device/port/PICC cs11 etc. if present ordered. 19:17 NS 0.9% 1000 ml IV at bolus once ordered. cs11 19:17 Acetaminophen Tablet 975 mg PO once ordered. cs11 19:18 -Blood Culture (Adults Only), peripheral from different site, or from device/port/PICC sew etc. if present complete. 19:18 Lactic Acid (Bryant tube on ice) Ordered. EDMS 19:18 CBC with Diff Ordered. EDMS 19:18 MED Profile Ordered. EDMS 19:18 -Blood Culture Ordered. EDMS 19:18 -Influenza A&B Rapid Antigen - Nose Ordered. EDMS 19:21 BLOOD CULTURES Ordered. EDMS 19:51 Financial registration complete. jpb 19:51 [facility] Payment Agreement was scanned into [employer] and attached to record. jpb 20:36 CBC with Diff Reviewed. cs11 20:36 Lactic Acid (Bryant tube on ice) Reviewed. cs11 20:36 -Influenza A&B Rapid Antigen - Nose Reviewed. cs11 20:36 MED Profile Reviewed. cs11 20:36 EKG-ADULT Reviewed. 11 06/20 08:18 T-Sheet-- Draft Copy was scanned into [employer] and attached to record. gb Administered Medications: 06/18 19:44 Drug: NS 0.9% 1000 ml [sodium chloride 0.9 % intravenous solution] Route: IV; Rate: mb9 bolus; Site: left antecubital; 19:44 Drug: Acetaminophen 975 mg [acetaminophen 325 mg tablet (3 tabs)] Route: PO; mb9 Signatures: Dispatcher [employer] EDMS Fabiola Dye, Renny Martínez Sarah sew Schiff, Craig, DO DO cs11 Rosaura Graff RN RN ead Belles, Michael, RN RN mb9 The chart was reviewed and I authenticate all verbal orders and agree with the evaluation and treatment provided.Attachments: 19:51 [facility] Payment Agreement [facility] 06/20 08:18 T-Sheet-- Draft Copy gb Chart Complete MTDD
--- NOTE | 2016-06-22 14:00 | EDDOCDS ---
Nurse's Notes [facility] Name: Kourtney Francisco Age: 30 yrs Sex: Female : 1985 Arrival Date: 06/18/2016 Time: 18:30 Bed 20 Private MD: TEENA CHEEK Diagnosis: Acute upper respiratory infection, unspecified-viral;Anemia, unspecified-microcytic Presentation: 06/18 18:36 Presenting complaint: Patient states: reports dizziness, "feels like I'm gonna pass ead out." Reports sob and chest pain. onset of symptoms "a few months ago," worsening today. "I just feel off, real nauseated.". Aspirin was taken DOG BATHER. 81 mg this morning. Adult Sepsis Screening: The patient does not have new or worsening altered mentation. Patient's respiratory rate is less than 22. Systolic blood pressure is greater than 100. Patient has a qSOFA score of 0- Negative Sepsis Screen. Suicide/Homicide risk assessment- the patient denies having any suicidal and/or homicidal ideations and does not present with any other emotional, behavioral or mental health complaints. 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 Transition of care: patient was not received from another setting of care. 18:36 Acuity: AMELIA Level 3 ead 18:36 Method Of Arrival: Walkin/Carried/Asstd ead Triage Assessment: 18:39 General: Appears in no apparent distress, Behavior is cooperative. Pain: Location: ead chest Pain currently is 5 out of 10 on a pain scale. HIV screening NA for this visit Offered previously. Neurological: Level of Consciousness is awake, alert, Oriented to person, place, time. Neurological: Reports dizziness. Cardiovascular: Chest pain is denied is described as "real uncomfortable". radiates Does not radiate. episodes are intermittent began this morning. Respiratory: Airway is patent Respiratory effort is even, unlabored, Reports shortness of breath. GI: Reports nausea. Derm: Skin is pink, warm & dry. 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 aspirin 81 mg Oral tab once daily 2. hydroxychloroquine 200 mg oral tab once daily 3. vit b 12 1000 daily 4. omeprazole 20 mg Oral cpDR once daily 5. inhalers daily 6. labetalol 50 mg Oral tab 2 times per day - PMHx: Lupus; Hypertension; Asthma; - PSHx: D & C; Adenoidectomy; Tonsillectomy; Ear Tubes; Cesearean Section; - Social history: Smoking status: Patient states was never smoker of tobacco. No barriers to communication noted, The patient speaks fluent Icelandic, Speaks appropriately for age. - Family history: No immediate family members are acutely ill. - : The pt / caregiver states he / she is not on anticoagulants. Home medication list is obtained from the patient, [employer] import data. - Exposure Risk Screening:: None identified. Screenin:45 Screening information is obtained from the patient. Fall risk: No risks identified. mb9 Assistance ADL's: requires no assistance with activities of daily living. Abuse/DV Screen: The patient / caregiver reports he/she is: not in a situation that causes fear, pain or injury. Nutritional screening: No deficits noted. Advance Directives: There is no active DNR order. home support is adequate. Assessment: 19:45 General: Appears in no apparent distress, Behavior is appropriate for age, cooperative. mb9 Pain: Denies pain. Neurological: Level of Consciousness is awake, alert, Oriented to person, place, time, Gait is steady, Speech is normal, Pupils are PERRLA. Neurological: Reports dizziness. Cardiovascular: Heart tones S1 S2 present. Respiratory: Airway is patent Respiratory effort is even, unlabored. 20:40 Reassessment: Patient appears in no apparent distress at this time. General: Appears in mb9 no apparent distress, Behavior is appropriate for age, cooperative. Pain: Denies pain. Respiratory: Airway is patent Respiratory effort is even, unlabored. Vital Signs: 18:32 BP 161 / 80; Pulse 108; Resp 18 S; Temp 100.5(O); Pulse Ox 100% on R/A; Weight 104.33 dd6 kg (R); Height 5 ft. 2 in. (157.48 cm) (R); 20:57 BP 131 / 60 (auto/); Pulse 92; Resp 17; Temp 99.5(O); Pulse Ox 98% on R/A; mb9 18:32 Body Mass Index 42.07 (104.33 kg, 157.48 cm) dd6 Vitals: 18:32 Log In Time: June 18, 2016 at 18:30. dd6 ED Course: 18:31 Patient visited by Vini Gomez PCA. dd6 18:31 Patient moved to Waiting dd6 18:32 TEENA CHEEK is Private Physician. dd6 18:32 Patient moved to Pre RCE dd6 18:35 Patient moved to PR2 / 26 rs6 18:38 Triage Initiated ead 18:41 EKG done. (by ED staff). Reviewed by Gavin GUARDADO. rs6 18:46 Patient moved to 20 mcp 18:53 Guido Cordova DO is Attending Physician. cs11 18:53 Patient visited by Guido Cordova DO. cs11 19:44 MED Profile Sent. mb9 19:44 CBC with Diff Sent. mb9 19:44 -Influenza A&B Rapid Antigen - Nose Sent. mb9 19:44 Lactic Acid (Bryant tube on ice) Sent. mb9 19:44 -Blood Culture Sent. mb9 19:45 The patient / caregiver is instructed regarding the plan of care and ED course. mb9 19:45 Inserted saline lock: 18 gauge in right antecubital area and blood collected. mb9 19:51 Patient visited by Gavin Bowling RN. mb9 19:51 [facility] Payment Agreement was scanned into [employer] and attached to record. jpb 20:33 EKG-ADULT Returned. EDMS 20:56 Patient visited by Shilpa Gupta, Body Art Technician. jlm 21:01 TEENA CHEEK is Referral Physician. cs11 21:16 Cardiac monitoring not applicable on this patient. mb9 21:16 Discontinued IV lock intact, bleeding controlled, pressure dressing applied, No mb9 redness/swelling at site. No procedures done that require assistance. 22:32 Chest, 2 View (pa\\E\\lat) Returned. EDMS 06/20 08:18 T-Sheet-- Draft Copy was scanned into [employer] and attached to record. gb Administered Medications: 06/18 19:44 Drug: NS 0.9% 1000 ml [sodium chloride 0.9 % intravenous solution] Route: IV; Rate: mb9 bolus; Site: left antecubital; 19:44 Drug: Acetaminophen 975 mg [acetaminophen 325 mg tablet (3 tabs)] Route: PO; mb9 Order Results: Lab Order: -Blood Culture; SPEC'M 06/18/16 20:08 Test: BLOOD CULTURE; Value: No growth after 48 hours . All specimens observed; Status: F Test: BLOOD CULTURE; Value: for 5 days. Results final at that time.; Status: F Test: BLOOD CULTURE; Status: F Test: BLOOD CULTURE; Value: No growth after 24 hours . All specimens observed; Status: F Test: BLOOD CULTURE; Value: for 5 days. Results final at that time.; Status: F Test: BLOOD CULTURE; Value: No Growth after 72 hours. All specimens observed; Status: F Test: BLOOD CULTURE; Value: for 7 days. Results final at that time.; Status: F Lab Order: Lactic Acid (Bryant tube on ice); SPEC'M 06/18/16 19:40 Test: LACTIC ACID LEVEL, LACTATE; Value: 0.8; Range: 0.4-2.0; Units: MMOL/L; Status: F Lab Order: -Influenza A&B Rapid Antigen - Nose; SPEC'M 06/18/16 19:40 Test: INFLUENZA A RAPID SCR by ICA; Value: INFLUENZA A RESULTS NEGATIVE; Status: F Test: INFLUENZA A RAPID SCR by ICA; Value: Comments:; Status: F Test: INFLUENZA B RAPID SCR by ICA; Value: INFLUENZA B RESULTS NEGATIVE; Status: F Test Note: ; The Influenza test is a direct rapid immunoassay for the qualitative detection of Influenza viral antigen. Cell culture (Viral Culture) testing should be considered to confirm NEGATIVE results and to assist in detecting other viruses that can provide similar clinical symptoms. Please contact the lab within 24 hours ([phone]) if confirmatory testing is desired. Lab Order: CBC with Diff; SPEC'M 06/18/16 19:40 Test: WHITE BLOOD COUNT; Value: 9.0; Range: 4.0-10.0; Units: K/mm3; Status: F Test: RED BLOOD COUNT; Value: 3.86; Range: 4.00-5.40; Abnormal: Below low normal; Units: M/mm3; Status: F Test: HEMOGLOBIN; Value: 8.3; Range: 12.0-16.0; Abnormal: Below low normal; Units: g/dl; Status: F Test: HEMATOCRIT; Value: 27.5; Range: 36.0-47.0; Abnormal: Below low normal; Units: %; Status: F Test: MEAN CORPUSCULAR VOLUME; Value: 71.3; Range: 80.0-96.0; Abnormal: Below low normal; Units: fl; Status: F Test: MEAN CORPUSCULAR HEMOGLOBIN; Value: 21.6; Range: 27.0-33.0; Abnormal: Below low normal; Units: pg; Status: F Test: MEAN CORPUSCULAR HGB CONC; Value: 30.3; Range: 32.0-36.5; Abnormal: Below low normal; Units: g/dl; Status: F Test: RED CELL DISTRIBUTION WIDTH; Value: 14.8; Range: 11.5-14.5; Abnormal: Above high normal; Units: %; Status: F Test: PLATELET COUNT, AUTOMATED; Value: 297; Range: 150-450; Units: k/mm3; Status: F Test: NEUTROPHILS %; Value: 81.9; Range: 36.0-66.0; Abnormal: Above high normal; Units: %; Status: F Test: LYMPH %; Value: 12.3; Range: 24.0-44.0; Abnormal: Below low normal; Units: %; Status: F Test: MONO %; Value: 3.7; Range: 0.0-5.0; Units: %; Status: F Test: EOS %; Value: 0.6; Range: 0.0-3.0; Units: %; Status: F Test: BASO %; Value: 0.3; Range: 0.0-1.0; Units: %; Status: F Test: LARGE UNSTAINED CELL %; Value: 1.2; Range: 0.0-4.0; Units: %; Status: F Test: NEUTROPHILS #; Value: 7.3; Range: 1.8-7.7; Units: K/mm3; Status: F Test: LYMPH #; Value: 1.1; Range: 1.5-4.5; Abnormal: Below low normal; Units: K/mm3; Status: F Test: MONO #; Value: 0.3; Range: 0.0-0.8; Units: K/mm3; Status: F Test: EOS #; Value: 0.0; Range: 0.0-0.50; Units: K/mm3; Status: F Test: BASO #; Value: 0.0; Range: 0.0-0.2; Units: K/mm3; Status: F Test: LARGE UNSTAINED CELL #; Value: 0.1; Range: 0.0-0.4; Units: K/mm3; Status: F Lab Order: MED Profile; SPEC'M 06/18/16 19:40 Test: GLUCOSE, FASTING; Value: 100; Range: 70-105; Units: MG/DL; Status: F Test: BLOOD UREA NITROGEN; Value: 11; Range: 7-18; Units: MG/DL; Status: F Test: CREATININE FOR GFR; Value: 0.86; Range: 0.55-1.02; Units: MG/DL; Status: F Test: GLOMERULAR FILTRATION RATE; Value: > 60.0; Range: >60; Status: F Test: SODIUM LEVEL; Value: 138; Range: 136-145; Units: MEQ/L; Status: F Test: POTASSIUM SERUM; Value: 3.9; Range: 3.5-5.1; Units: MEQ/L; Status: F Test: CHLORIDE LEVEL; Value: 103; Range: 98-107; Units: MEQ/L; Status: F Test: CARBON DIOXIDE LEVEL; Value: 27; Range: 21-32; Units: MEQ/L; Status: F Test: ANION GAP; Value: 8; Range: 8-16; Units: MEQ/L; Status: F Test: CALCIUM LEVEL; Value: 9.5; Range: 8.5-10.1; Units: MG/DL; Status: F Test Note: ; Units are mL/min/1.73 m2 Chronic Kidney Disease Staging per NKF: Stage I & II GFR >=60 Normal to Mildly Decreased Stage III GFR 30-59 Moderately Decreased Stage IV GFR 15-29 Severely Decreased Stage V GFR <15 Very Little GFR Left ESRD GFR <15 on SENIOR INVESTMENT MANAGER Lab Order: BLOOD CULTURES; SPEC'M 06/18/16 19:40 Test: BLOOD CULTURE; Value: No growth after 48 hours . All specimens observed; Status: F Test: BLOOD CULTURE; Value: for 5 days. Results final at that time.; Status: F Test: BLOOD CULTURE; Status: F Test: BLOOD CULTURE; Value: No growth after 24 hours . All specimens observed; Status: F Test: BLOOD CULTURE; Value: for 5 days. Results final at that time.; Status: F Test: BLOOD CULTURE; Value: No Growth after 72 hours. All specimens observed; Status: F Test: BLOOD CULTURE; Value: for 7 days. 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 The lung singh are clear and; without acute consolidation, effusion, or pneumothorax. The skeletal structures; are intact and normal.; ; Impression:; 1. No acute cardiopulmonary process.; ; ; Signed by; Brandon Larkin MD 06/18/2016 09:41 P; Outcome: 21:02 Discharge ordered by Provider. [facility] 21:16 Discharge Assessment: Patient awake, alert and oriented x 3. No cognitive and/or mb9 functional deficits noted. Patient verbalized understanding of disposition instructions. patient administered narcotics - no. The following High Risk Discharge criteria are identified: None. Discharged to home ambulatory. Condition: good Condition: stable Condition: improved. Discharge instructions given to patient, Instructed on discharge instructions, follow up and referral plans. medication usage, Demonstrated understanding of instructions, medications, Pt was receptive of discharge instructions/ teaching. No special radiology studies were completed. Property :Personal belongings accompany Pt. 21:17 Patient left the ED. mb9 Signatures: Dispatcher [employer] EDNancy Dooley, RN RN mcp Fabiola Dye, Reg Reg gb Vini Gomez, DESIGN ARCHITECT DESIGN ARCHITECT dd6 Renny Gutierres Craig, DO DO cs11 Rosaura Graff,RN RN Shilpa Ford, Body Art Technician Unit Gavin Bustillo RN RN mb9 Schmitt, Rebecca, DESIGN ARCHITECT DESIGN ARCHITECT rs6 Chart Complete MTDD
== END 2016-06-18 21:17 | disposition home or self-care (01) ==
LOC: M ED 18:30
DX: J06.9 Acute upper respiratory infection, unspecified (principal); B34.9 Viral infection, unspecified; D50.9 Iron deficiency anemia, unspecified; I10 Essential (primary) hypertension; J45.909 Unspecified asthma, uncomplicated; D68.62 Lupus anticoagulant syndrome; Z87.19 Personal history of other diseases of the digestive system; Z79.899 Other long term (current) drug therapy; Z79.82 Long term (current) use of aspirin; Z88.2 Allergy status to sulfonamides

== ENCOUNTER 2016-07-26 08:45 | Emergency (ER) | payer OTHER ==
--- NOTE | 2016-07-26 09:29 | EDDOCDS ---
Nurse's Notes [facility] Name: Kourtney Francisco Age: 30 yrs Sex: Female : 1985 Arrival Date: 07/26/2016 Time: 08:45 Bed Triage 1 Private MD: Shaun Muñoz Diagnosis: Acute bronchitis Presentation: 07/26 08:50 Presenting complaint: Patient states: Seen at Urgent Care and diagnosed with ck1 "bronchitis", c/o pain radiating to back and lateral chest. Acute neurological deficits are not present. Mechanism of Injury: No Mechanism of Injury. Adult Sepsis Screening: The patient does not have new or worsening altered mentation. Patient's respiratory rate is less than 22. Systolic blood pressure is greater than 100. Patient has a qSOFA score of 0- Negative Sepsis Screen. Suicide/Homicide risk assessment- the patient denies having any suicidal and/or homicidal ideations and does not present with any other emotional, behavioral or mental health complaints. 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 Transition of care: patient was not received from another setting of care. 08:50 Acuity: AMELIA Level 4 ck1 08:50 Method Of Arrival: Walkin/Carried/Asstd ck1 Triage Assessment: 08:54 General: Appears in no apparent distress, comfortable, Behavior is appropriate for age, ck1 cooperative. Pain: Location: left lateral posterior chest and right lateral posterior chest Pain At worst was 7 out of 10 on a pain scale. HIV screening NA for this visit Offered previously. Respiratory: Respiratory effort is unlabored, Respiratory pattern is regular, symmetrical. Derm: Skin is intact, is healthy with good turgor, Skin is pink, warm & dry. Musculoskeletal: Circulation, motion, and sensation intact Range of motion intact in all extremities. 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 aspirin 81 mg Oral tab once daily 2. Flovent Inhl 2 puff PRN 3. Albuterol Inhl 1 puff PRN 4. labetalol 50 mg Oral tab 2 times per day 5. omeprazole 20 mg Oral cpDR once daily 6. vit b 12 1000 daily 7. Iron CR Oral 325 mg daily 8. Cefuroxime Oral 250 mg twice a day (Last dose: 07/25/2016 21:00) - PMHx: Asthma; Hypertension; Lupus; - PSHx: D & C; Adenoidectomy; Tonsillectomy; Ear Tubes; Cesearean Section; - Social history: Smoking status: Patient states was never smoker of tobacco. No barriers to communication noted, The patient speaks fluent Divehi, Speaks appropriately for age. - Family history: Not pertinent. - : The pt / caregiver states he / she is not on anticoagulants. Home medication list is obtained from the patient. - Exposure Risk Screening:: None identified. Screenin:26 Screening information is obtained from the patient. Fall risk: No risks identified. mlb1 Assistance ADL's: requires no assistance with activities of daily living. Abuse/DV Screen: The patient / caregiver reports he/she is: not in a situation that causes fear, pain or injury. Nutritional screening: No deficits noted. Advance Directives: Currently, there is no health care proxy. home support is adequate. Assessment: 09:26 General: Appears in no apparent distress, Behavior is appropriate for age, cooperative. mlb1 Pain: Denies pain. Respiratory: Airway is patent Respiratory effort is even, unlabored, Reports cough that is non-productive, persistent. Derm: No deficits noted. Vital Signs: 08:48 BP 137 / 83; Pulse 81; Resp 20; Temp 98.4(O); Pulse Ox 98% on R/A; Weight 108.86 kg; dem1 Height 5 ft. 2 in. (157.48 cm); Pain 7/10; 08:48 Body Mass Index 43.90 (108.86 kg, 157.48 cm) [facility] Vitals: 08:48 Log In Time: July 26, 2016 at 08:46. [facility] ED Course: 08:47 Patient visited by Reginaldo Chris. dem1 08:47 Shaun Muñoz is Private Physician. dem1 08:47 Patient moved to Waiting dem1 08:48 Patient visited by Reginaldo Chris. dem1 08:49 Patient moved to Pre RCE dem1 08:49 Patient moved to Triage 1 ck1 08:51 Triage Initiated ck1 09:05 Moisés Cuellar PA-C is PHCP. ar2 09:05 Adenike Menjivar MD is Attending Physician. ar2 09:05 Patient visited by Moisés Cuellar PA-C. ar2 09:18 Shaun Muñoz is Referral Physician. ar2 09:19 [facility] Payment Agreement was scanned into [employer] and attached to record. mm15 09:26 No IV's were initiated during this patient's visit. No procedures done that require mlb1 assistance. 09:27 Patient visited by Gavin Cruz, RN. mlb1 09:27 The patient / caregiver is instructed regarding the plan of care and ED course. mlb1 Order Results: There are currently no results for this order. Outcome: 09:20 Discharge ordered by Provider. ar2 09:27 Discharge Assessment: Patient awake, alert and oriented x 3. No cognitive and/or mlb1 functional deficits noted. Patient verbalized understanding of disposition instructions. patient administered narcotics - no. The following High Risk Discharge criteria are identified: None. Discharged to home ambulatory. Condition: good. Discharge instructions given to patient, Instructed on discharge instructions, follow up and referral plans. medication usage, no driving heavy equipment, Demonstrated understanding of instructions, medications, Pt was receptive of discharge instructions/ teaching. Prescriptions given X 1. No special radiology studies were completed. Property sent home with patient. 09:27 Patient left the ED. mlb1 Signatures: Gavin Cruz, RN RN mlb1 Melanie Perez RN RN ck1 Moisés Cuellar PA-C PA-C ar2 Reginaldo Chris dem1 Reyna Vee [id number] [facility]
--- NOTE | 2016-07-26 09:29 | EDDOCDS ---
Physician Documentation [facility] Name: Kourtney Francisco Age: 30 yrs Sex: Female : 1985 Arrival Date: 07/26/2016 Time: 08:45 Bed Triage 1 Private MD: Shaun Muñoz Disposition: 07/26/16 09:20 Discharged to Home/Self Care. Impression: Acute bronchitis. - Condition is Stable. - Discharge Instructions: Acute Bronchitis. - Prescriptions for codeine- guaifenesin 10-100 mg/5 mL Oral liquid - take 10 milliliter by ORAL route every 4 hours As needed; 300 milliliter. - Medication Reconciliation, Local Pharmacy Hours form. - Follow up: Shaun Muñoz; When: 4 - 5 days; Reason: Recheck today's complaints. Follow up: Emergency Department; When: As needed; Reason: Fever > 102F, Trouble breathing. - Problem is new. - Symptoms are unchanged. Historical: - Allergies: SULFA (SULFONAMIDES) (Rash); Ciprofloxacin; - Home Meds: 1. aspirin 81 mg Oral tab once daily 2. Flovent Inhl 2 puff PRN 3. Albuterol Inhl 1 puff PRN 4. labetalol 50 mg Oral tab 2 times per day 5. omeprazole 20 mg Oral cpDR once daily 6. vit b 12 1000 daily 7. Iron CR Oral 325 mg daily 8. Cefuroxime Oral 250 mg twice a day (Last dose: 07/25/2016 21:00) - PMHx: Asthma; Hypertension; Lupus; - PSHx: D & C; Adenoidectomy; Tonsillectomy; Ear Tubes; Cesearean Section; - Social history: Smoking status: Patient states was never smoker of tobacco. No barriers to communication noted, The patient speaks fluent Slovenian, Speaks appropriately for age. - Family history: Not pertinent. - : The pt / caregiver states he / she is not on anticoagulants. Home medication list is obtained from the patient. - Exposure Risk Screening:: None identified. 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 2 in. (157.48 cm); Pain 12/22; 08:48 Body Mass Index 43.90 (108.86 kg, 157.48 cm) dem1 MDM: 09:17 Financial registration complete. mm15 09:19 [facility] Payment Agreement was scanned into [employer] and attached to record. mm15 Signatures: Gavin Cruz RN RN mlb1 Melanie Perez RN RN ck1 Moisés Cuellar PA-C PA-C ar2 Reyna Vee mm15 The chart was reviewed and I authenticate all verbal orders and agree with the evaluation and treatment provided.Attachments: 09:19 [facility] Payment Agreement mm15 MTDD
--- NOTE | 2016-07-28 10:28 | EDDOCDS ---
Physician Documentation [facility] Name: Kourtney Francisco Age: 30 yrs Sex: Female : 1985 Arrival Date: 07/26/2016 Time: 08:45 Bed Triage 1 Private MD: Shaun Muñoz Disposition: 07/26/16 09:20 Discharged to Home/Self Care. Impression: Acute bronchitis. - Condition is Stable. - Discharge Instructions: Acute Bronchitis. - Prescriptions for codeine- guaifenesin 10-100 mg/5 mL Oral liquid - take 10 milliliter by ORAL route every 4 hours As needed; 300 milliliter. - Medication Reconciliation, Local Pharmacy Hours form. - Follow up: Shaun Muñoz; When: 4 - 5 days; Reason: Recheck today's complaints. Follow up: Emergency Department; When: As needed; Reason: Fever > 102F, Trouble breathing. - Problem is new. - Symptoms are unchanged. Historical: - Allergies: SULFA (SULFONAMIDES) (Rash); Ciprofloxacin; - Home Meds: 1. aspirin 81 mg Oral tab once daily 2. Flovent Inhl 2 puff PRN 3. Albuterol Inhl 1 puff PRN 4. labetalol 50 mg Oral tab 2 times per day 5. omeprazole 20 mg Oral cpDR once daily 6. vit b 12 1000 daily 7. Iron CR Oral 325 mg daily 8. Cefuroxime Oral 250 mg twice a day (Last dose: 07/25/2016 21:00) - PMHx: Asthma; Hypertension; Lupus; - PSHx: D & C; Adenoidectomy; Tonsillectomy; Ear Tubes; Cesearean Section; - Social history: Smoking status: Patient states was never smoker of tobacco. No barriers to communication noted, The patient speaks fluent German, Speaks appropriately for age. - Family history: Not pertinent. - : The pt / caregiver states he / she is not on anticoagulants. Home medication list is obtained from the patient. - Exposure Risk Screening:: None identified. 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 2 in. (157.48 cm); Pain 12/22; 08:48 Body Mass Index 43.90 (108.86 kg, 157.48 cm) dem1 MDM: 09:17 Financial registration complete. mm15 09:19 [facility] Payment Agreement was scanned into [employer] and attached to record. mm15 15:51 T-Sheet-- Draft Copy was scanned into [employer] and attached to record. klr Signatures: Gavin Cruz RN RN mlb1 Melanie Perze RN RN ck1 Moisés Cuellar PA-C PALauren ar2 Reyna Vee mm15 Janiya Gonsalez klr The chart was reviewed and I authenticate all verbal orders and agree with the evaluation and treatment provided.Attachments: :19 [facility] Payment Agreement mm15 15:51 T-Sheet-- Draft Copy klr Chart Complete MTDD
--- NOTE | 2016-07-28 10:28 | EDDOCDS ---
Physician Documentation [facility] Name: Kourtney Francisco Age: 30 yrs Sex: Female : 1985 Arrival Date: 07/26/2016 Time: 08:45 Bed Triage 1 Private MD: Shaun Muñoz Disposition: 07/26/16 09:20 Discharged to Home/Self Care. Impression: Acute bronchitis. - Condition is Stable. - Discharge Instructions: Acute Bronchitis. - Prescriptions for codeine- guaifenesin 10-100 mg/5 mL Oral liquid - take 10 milliliter by ORAL route every 4 hours As needed; 300 milliliter. - Medication Reconciliation, Local Pharmacy Hours form. - Follow up: Shaun Muñoz; When: 4 - 5 days; Reason: Recheck today's complaints. Follow up: Emergency Department; When: As needed; Reason: Fever > 102F, Trouble breathing. - Problem is new. - Symptoms are unchanged. Historical: - Allergies: SULFA (SULFONAMIDES) (Rash); Ciprofloxacin; - Home Meds: 1. aspirin 81 mg Oral tab once daily 2. Flovent Inhl 2 puff PRN 3. Albuterol Inhl 1 puff PRN 4. labetalol 50 mg Oral tab 2 times per day 5. omeprazole 20 mg Oral cpDR once daily 6. vit b 12 1000 daily 7. Iron CR Oral 325 mg daily 8. Cefuroxime Oral 250 mg twice a day (Last dose: 07/25/2016 21:00) - PMHx: Asthma; Hypertension; Lupus; - PSHx: D & C; Adenoidectomy; Tonsillectomy; Ear Tubes; Cesearean Section; - Social history: Smoking status: Patient states was never smoker of tobacco. No barriers to communication noted, The patient speaks fluent Kyrgyz, Speaks appropriately for age. - Family history: Not pertinent. - : The pt / caregiver states he / she is not on anticoagulants. Home medication list is obtained from the patient. - Exposure Risk Screening:: None identified. 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 2 in. (157.48 cm); Pain 12/22; 08:48 Body Mass Index 43.90 (108.86 kg, 157.48 cm) dem1 MDM: 09:17 Financial registration complete. mm15 09:19 [facility] Payment Agreement was scanned into [employer] and attached to record. mm15 15:51 T-Sheet-- Draft Copy was scanned into [employer] and attached to record. klr Signatures: Gavin Cruz RN RN mlb1 Melanie Perez RN RN ck1 Moisés Cuellar PA-C PALauren ar2 Reyna Vee mm15 Janiya Gonsalez klr The chart was reviewed and I authenticate all verbal orders and agree with the evaluation and treatment provided.Attachments: :19 [facility] Payment Agreement mm15 15:51 T-Sheet-- Draft Copy klr Chart Complete MTDD
--- NOTE | 2016-07-28 10:28 | EDDOCDS ---
Nurse's Notes [facility] Name: Kourtney Francisco Age: 30 yrs Sex: Female : 1985 Arrival Date: 07/26/2016 Time: 08:45 Bed Triage 1 Private MD: Shaun Muñoz Diagnosis: Acute bronchitis Presentation: 07/26 08:50 Presenting complaint: Patient states: Seen at Urgent Care and diagnosed with ck1 "bronchitis", c/o pain radiating to back and lateral chest. Acute neurological deficits are not present. Mechanism of Injury: No Mechanism of Injury. Adult Sepsis Screening: The patient does not have new or worsening altered mentation. Patient's respiratory rate is less than 22. Systolic blood pressure is greater than 100. Patient has a qSOFA score of 0- Negative Sepsis Screen. Suicide/Homicide risk assessment- the patient denies having any suicidal and/or homicidal ideations and does not present with any other emotional, behavioral or mental health complaints. Status: Patient is not a clinical services specialist or dependent. Transition of care: patient was not received from another setting of care. 08:50 Acuity: AMELIA Level 4 ck1 08:50 Method Of Arrival: Walkin/Carried/Asstd ck1 Triage Assessment: 08:54 General: Appears in no apparent distress, comfortable, Behavior is appropriate for age, ck1 cooperative. Pain: Location: left lateral posterior chest and right lateral posterior chest Pain At worst was 7 out of 10 on a pain scale. HIV screening NA for this visit Offered previously. Respiratory: Respiratory effort is unlabored, Respiratory pattern is regular, symmetrical. Derm: Skin is intact, is healthy with good turgor, Skin is pink, warm & dry. Musculoskeletal: Circulation, motion, and sensation intact Range of motion intact in all extremities. 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 aspirin 81 mg Oral tab once daily 2. Flovent Inhl 2 puff PRN 3. Albuterol Inhl 1 puff PRN 4. labetalol 50 mg Oral tab 2 times per day 5. omeprazole 20 mg Oral cpDR once daily 6. vit b 12 1000 daily 7. Iron CR Oral 325 mg daily 8. Cefuroxime Oral 250 mg twice a day (Last dose: 07/25/2016 21:00) - PMHx: Asthma; Hypertension; Lupus; - PSHx: D & C; Adenoidectomy; Tonsillectomy; Ear Tubes; Cesearean Section; - Social history: Smoking status: Patient states was never smoker of tobacco. No barriers to communication noted, The patient speaks fluent Danish, Speaks appropriately for age. - Family history: Not pertinent. - : The pt / caregiver states he / she is not on anticoagulants. Home medication list is obtained from the patient. - Exposure Risk Screening:: None identified. Screenin:26 Screening information is obtained from the patient. Fall risk: No risks identified. mlb1 Assistance ADL's: requires no assistance with activities of daily living. Abuse/DV Screen: The patient / caregiver reports he/she is: not in a situation that causes fear, pain or injury. Nutritional screening: No deficits noted. Advance Directives: Currently, there is no health care proxy. home support is adequate. Assessment: 09:26 General: Appears in no apparent distress, Behavior is appropriate for age, cooperative. mlb1 Pain: Denies pain. Respiratory: Airway is patent Respiratory effort is even, unlabored, Reports cough that is non-productive, persistent. Derm: No deficits noted. Vital Signs: 08:48 BP 137 / 83; Pulse 81; Resp 20; Temp 98.4(O); Pulse Ox 98% on R/A; Weight 108.86 kg; dem1 Height 5 ft. 2 in. (157.48 cm); Pain 7/10; 08:48 Body Mass Index 43.90 (108.86 kg, 157.48 cm) [facility] Vitals: 08:48 Log In Time: July 26, 2016 at 08:46. [facility] ED Course: 08:47 Patient visited by Reginaldo Chris. dem1 08:47 Shaun Muñoz is Private Physician. dem1 08:47 Patient moved to Waiting dem1 08:48 Patient visited by Reginaldo Chris. dem1 08:49 Patient moved to Pre RCE dem1 08:49 Patient moved to Triage 1 ck1 08:51 Triage Initiated ck1 09:05 Moisés Cuellar PA-C is PHCP. ar2 09:05 Adenike Menjivar MD is Attending Physician. ar2 09:05 Patient visited by Moisés Cuellar PA-C. ar2 09:18 Shaun Muñoz is Referral Physician. ar2 09:19 [facility] Payment Agreement was scanned into [employer] and attached to record. mm15 09:26 No IV's were initiated during this patient's visit. No procedures done that require mlb1 assistance. 09:27 Patient visited by Gavin Cruz, AMARILIS. mlb1 09:27 The patient / caregiver is instructed regarding the plan of care and ED course. mlb1 15:51 T-Sheet-- Draft Copy was scanned into [employer] and attached to record. klr Order Results: There are currently no results for this order. Outcome: 09:20 Discharge ordered by Provider. ar2 09:27 Discharge Assessment: Patient awake, alert and oriented x 3. No cognitive and/or mlb1 functional deficits noted. Patient verbalized understanding of disposition instructions. patient administered narcotics - no. The following High Risk Discharge criteria are identified: None. Discharged to home ambulatory. Condition: good. Discharge instructions given to patient, Instructed on discharge instructions, follow up and referral plans. medication usage, no driving heavy equipment, Demonstrated understanding of instructions, medications, Pt was receptive of discharge instructions/ teaching. Prescriptions given X 1. No special radiology studies were completed. Property sent home with patient. 09:27 Patient left the ED. mlb1 Signatures: Gavin Cruz, RN RN mlb1 Melanie Perez RN RN ck1 Moisés Cuellar PA-C PA-C ar2 Reginaldo Chris dem1 Reyna Vee mm15 Janiya Gonsalez r Chart Complete MTDD
== END 2016-07-26 09:27 | disposition home or self-care (01) ==
LOC: M ED 08:45
DX: J20.9 Acute bronchitis, unspecified (principal); R07.89 Other chest pain; J45.909 Unspecified asthma, uncomplicated; I10 Essential (primary) hypertension; M32.9 Systemic lupus erythematosus, unspecified; Z79.82 Long term (current) use of aspirin; Z79.899 Other long term (current) drug therapy; Z88.2 Allergy status to sulfonamides; Z88.1 Allergy status to other antibiotic agents

== ENCOUNTER → 2016-10-06 | Outpatient (REF) | payer OTHER ==
[2016-10-07 13:37] LABS: CONTROL LINE HPYORI INT CTR LINE PRESENT
== END ==
LOC: M SFHCPLAZ 12:49
PROVIDERS: ATTEND Family Medicine
DX: Z00.00 Encounter for general adult medical examination without abnormal findings (principal); E66.01 Morbid (severe) obesity due to excess calories; R10.84 Generalized abdominal pain

== ENCOUNTER → 2016-11-17 | Outpatient (CLI) | payer MEDICAID ==
--- NOTE | 2016-11-24 06:42 | SLEEPHOME ---
DATE OF PROCEDURE: 11/17/2016 ORDERED BY: Mary Ann Roche. INTERPRETATION: Diagnostic home sleep testing was performed due to concern for the obstructive sleep apnea syndrome. For testing, a NOX-T3 respiratory monitoring device was used. Continuous record was made of pulse, oxygen saturation, air flow, chest and abdominal strain, and body position. 10 hours and 59 minutes of data were reviewed. Of these, 5 hours and 24 minutes were marked as time in bed. During the interval marked time in bed, there were 52 respiratory events identified of 10 seconds in duration or greater for a respiratory event index of 9.6. The events were primarily obstructive. Baseline oxygen saturation 93%. Lowest oxygen saturation 86%. Baseline pulse rate was 66 beats per minute. Pulse rate ranged 35-104. Testing was performed in both the supine and non-supine positions. IMPRESSION: Abnormal home sleep testing with repetitive respiratory events and oxygen desaturations to 86% and a respiratory event index of 9.6 is consistent with the obstructive sleep apnea syndrome. RECOMMENDATION: The patient should be referred for formal sleep evaluation and in laboratory pressure titration.
== END ==
LOC: M SLEEP HO 13:53
PROVIDERS: ATTEND Nurse Practitioner Adult Health
DX: G47.9 Sleep disorder, unspecified (principal)

== ENCOUNTER → 2016-12-09 | Outpatient (CLI) | payer MEDICAID ==
--- NOTE | 2016-12-11 12:13 | SLEEPCENT ---
DATE OF PROCEDURE: 12/09/2016 REQUESTING PROVIDER: Mary Ann Rcohe NP INTERPRETATION: Nocturnal polysomnography was performed for the titration of pressure therapy in this patient with a clinical diagnosis of obstructive sleep apnea syndrome supported by home testing revealing a respiratory event index of 9.6. For testing, the patient was fit with a ResMed AirFit F20 full face mask of small size, 4 cm of water pressure were applied to the circuit and the lights were extinguished. 7 hours and 35 minutes of data were reviewed. There were 353 minutes of sleep identified. Sleep latency was prolonged at 31 minutes. Rapid eye movement (REM) latency was mildly prolonged at 94 minutes. Sleep architecture improved late in the study with optimal pressure therapy. Overall sleep efficiency was 78.4%. The patient's electrocardiogram (EKG) showed a sinus rhythm with an average heart rate of 66 beats per minute. Electroencephalogram (EEG) showed reasonably normal waveforms for awake and sleep. Respiratory events were reasonably palliated with a CPAP to a pressure of +6. There was some additional limb movement activity identified with a limb movement arousal index of 11.2. IMPRESSION: 1. Obstructive sleep apnea syndrome (G47.33). 2. Possible periodic limb movement disorder (G47.61). Limb movement arousal index of 11.2. RECOMMENDATIONS: The patient should be encouraged to initiate nightly pressure therapy at 6 cm of water. Should sleep symptoms persist, interventions to reduce the frequency of arousal from limb activity may also be helpful.
== END ==
LOC: M SLEEP 19:38
PROVIDERS: ATTEND Nurse Practitioner Adult Health
DX: G47.33 Obstructive sleep apnea (adult) (pediatric) (principal); G47.61 Periodic limb movement disorder

== ENCOUNTER 2017-01-17 15:30 | Emergency (ER) | payer MEDICAID, OTHER ==
[~2017-01-17] VITALS: Ht 157.5 cm; Wt 109.1 kg
[~2017-01-17 15:30] MED LIST changes: +PERC5TAB12 PO; -PERC5TAB6 PO
[2017-01-17] MEDS ORDERED: FLOV50AE IN (15:37)
[2017-01-17] MEDS ORDERED: OMEP40CA2 PO (15:37)
[2017-01-17] MEDS ORDERED: ECOT81TA5 PO (15:37)
[2017-01-17] MEDS ORDERED: KETOROLAC 60 MG/2 ML VIAL (J1885) IM ONE (17:15)
--- NOTE | 2017-01-17 18:30 | REPUSA ---
CLINICAL HISTORY: Neck pain. TECHNIQUE: Multiple axial images were obtained through the cervical spine. Images were also reconstru cted in coronal and sagittal planes. The study was performed without IV contrast. COMMENTS: There is no fracture or spondylolisthesis visualized. The paraspinal soft tissues are unremarkable. T here are no lytic or blastic lesions. Straightening of cervical lordosis is seen, suggesting muscular spasm. There is evidence of minimal m ultilevel disk disease, demonstrated by minimal osteophytosis and endplate sclerosis. No significant disk herniation is noted at any level. Canal and foramina remain patent. IMPRESSION: 1. No fracture or spondylolisthesis. 2. Straightening of cervical lordosis is seen, suggesting muscular spasm. 3. Minimal multilevel spondylosis. Thank you for your kind referral of this patient.
[2017-01-17] MEDS ORDERED: NAPR500T3 PO (18:36)
[2017-01-17] MEDS ORDERED: BACL1TAB8 GT (18:36)
[2017-01-17] MEDS ORDERED: TYLE325T5 PO (18:36)
[2017-01-17] MEDS ORDERED: BACL10TA2 PO (18:46)
[2017-01-17 18:48] VITALS: BP 145/89
== END 2017-01-17 18:49 | disposition home or self-care (01) ==
LOC: M ED 15:30
DX: M54.2 Cervicalgia (principal); I10 Essential (primary) hypertension; J45.909 Unspecified asthma, uncomplicated; M32.9 Systemic lupus erythematosus, unspecified; K76.9 Liver disease, unspecified; Z79.82 Long term (current) use of aspirin; Z79.899 Other long term (current) drug therapy; Z88.2 Allergy status to sulfonamides
CPT/HCPCS: 72125; 96372; 99282; J1885

== ENCOUNTER 2017-01-17 19:29 | Emergency (ER) | payer OTHER ==
[~2017-01-17] VITALS: Ht 157.5 cm; Wt 109.0 kg
[~2017-01-17 19:29] MED LIST changes: +BACL10TA2 PO; +BACL1TAB8 GT; +ECOT81TA5 PO; +FLOV50AE IN; +NAPR500T3 PO; +OMEP40CA2 PO; +TYLE325T5 PO
[2017-01-17 19:47] VITALS: BP 146/78
== END 2017-01-17 20:48 | disposition left against medical advice (07) ==
LOC: M ED 19:29
DX: M54.2 Cervicalgia (principal); Z53.29 Procedure and treatment not carried out because of patient's decision for other reasons

== ENCOUNTER → 2017-03-04 | Outpatient (REF) | payer OTHER | LOC: M LAB REF 09:45 | PROVIDERS: ATTEND Physician Assistant | DX: N39.0 Urinary tract infection, site not specified (principal) ==

== ENCOUNTER 2017-03-11 14:39 | Outpatient (RCR) | payer OTHER | END 2017-03-14 | disposition home or self-care (01) | LOC: M PT 14:39 | PROVIDERS: ATTEND Family Medicine | DX: Z51.89 Encounter for other specified aftercare (principal); M54.2 Cervicalgia; M54.5 Low back pain ==

== ENCOUNTER → 2017-03-16 | Outpatient (REF) | payer OTHER ==
[2017-03-16 18:57] LABS: FOLATE 12.2 NG/ML
== END ==
LOC: M SFHCPLAZ 15:01
PROVIDERS: ATTEND Family Medicine
DX: Z86.39 Personal history of other endocrine, nutritional and metabolic disease (principal)

== ENCOUNTER 2017-04-08 14:26 | Outpatient (RCR) | payer OTHER | END 2017-04-14 | LOC: M PT 14:26 | PROVIDERS: ATTEND Family Medicine | DX: Z51.89 Encounter for other specified aftercare (principal); M54.2 Cervicalgia ==

== ENCOUNTER 2017-05-13 13:23 | Outpatient (RCR) | payer OTHER | END 2017-05-14 | LOC: M PT 13:23 | PROVIDERS: ATTEND Family Medicine | DX: M54.2 Cervicalgia (principal); M54.5 Low back pain ==

== ENCOUNTER 2017-05-18 14:12 | Outpatient (RCR) | payer OTHER | END 2017-06-14 | LOC: M PT 14:12 | DX: Z51.89 Encounter for other specified aftercare (principal); M54.2 Cervicalgia | CPT/HCPCS: 97010 ==

== ENCOUNTER → 2017-08-12 | Outpatient (RCR) | payer OTHER | LOC: M PT 14:00 | DX: Z51.89 Encounter for other specified aftercare (principal); M54.2 Cervicalgia ==

== ENCOUNTER 2017-08-17 14:45 | Outpatient (RCR) | payer OTHER | END 2017-09-12 | LOC: M PT 14:45 | DX: Z51.89 Encounter for other specified aftercare (principal); M54.2 Cervicalgia ==

== ENCOUNTER → 2018-04-22 | Outpatient (REF) | payer OTHER ==
[2018-04-22 17:35] LABS: BASO % 0.5 % (0.0-1.0); EOS # 0.1 10^3/uL (0.0-0.50); EOS % 1.1 % (0.0-3.0); HEMATOCRIT 27.6 % (36.0-47.0); HEMOGLOBIN 8.4 g/dl (12.0-15.5); IMMATURE GRANULOCYTE % 0.6 % (0-3.0); LYMPH # 1.9 10^3/uL (1.5-4.5); LYMPH % 30.3 % (24.0-44.0); MEAN CORPUSCULAR HEMOGLOBIN 26.3 pg (27.0-33.0); MEAN CORPUSCULAR HGB CONC 30.4 g/dl (32.0-36.5); MEAN CORPUSCULAR VOLUME 86.5 fl (80.0-96.0); MONO # 0.4 10^3/uL (0.0-0.8); MONO % 5.9 % (0.0-5.0); NEUTROPHILS # 3.9 10^3/uL (1.8-7.7); NEUTROPHILS % 61.6 % (36.0-66.0); PLATELET COUNT, AUTOMATED 349 10^3/uL (150-450); RED BLOOD COUNT 3.19 10^6/uL (4.00-5.40); RED CELL DISTRIBUTION WIDTH 13.1 % (11.5-14.5); WHITE BLOOD COUNT 6.3 10^3/uL (4.0-10.0)
[2018-04-22 17:49] LABS: ALBUMIN/GLOBULIN RATIO 1.18 (1.00-1.93); ALKALINE PHOSPHATASE 60 U/L (45-117); ALT/SGPT 41 U/L (12-78); ANION GAP 5 MEQ/L (8-16); AST/SGOT 20 U/L (7-37); BILIRUBIN,TOTAL 0.5 MG/DL (0.2-1.0); BLOOD UREA NITROGEN 10 MG/DL (7-18); C REACTIVE PROTEIN QUANTITATIV 0.38 MG/DL (0.00-0.30); CALCIUM LEVEL 9.2 MG/DL (8.5-10.1); CARBON DIOXIDE LEVEL 28 MEQ/L (21-32); CHLORIDE LEVEL 105 MEQ/L (98-107); GLOMERULAR FILTRATION RATE > 60.0 (>60); GLUCOSE, FASTING 94 MG/DL (70-100); POTASSIUM SERUM 4.4 MEQ/L (3.5-5.1); SODIUM LEVEL 138 MEQ/L (136-145); TOTAL PROTEIN 7.4 GM/DL (6.4-8.2)
[2018-04-22 18:26] LABS: ERYTHROCYTE SEDIMENTATION RATE 33 mm/hr (0-20)
[2018-04-25 00:08] LABS: ANA (HEP2) Negative (.)
== END ==
LOC: M SFHCLERA 14:00
DX: M35.9 Systemic involvement of connective tissue, unspecified (principal); D68.61 Antiphospholipid syndrome
CPT/HCPCS: 84443

== ENCOUNTER → 2018-05-03 | Outpatient (REF) | payer OTHER ==
[2018-05-03 18:46] LABS: FERRITIN 4 NG/ML (8-252); IRON (FE) 20 UG/DL (50-170); TOTAL IRON BINDING CAPACITY 495 UG/DL (250-450)
[2018-05-03 19:18] LABS: HEMATOCRIT 24.2 % (36.0-47.0); MEAN CORPUSCULAR HEMOGLOBIN 24.6 pg (27.0-33.0); MEAN CORPUSCULAR HGB CONC 28.9 g/dl (32.0-36.5); MEAN CORPUSCULAR VOLUME 85.2 fl (80.0-96.0); PLATELET COUNT, AUTOMATED 269 10^3/uL (150-450); RED BLOOD COUNT 2.84 10^6/uL (4.00-5.40); RETIC HEMOGLOBIN EQUIVALENT 21.9 pg (24-36); RETICULOCYTE # 79.2 10^9/L (17-77); RETICULOCYTE % 2.8 % (0.5-1.5); WHITE BLOOD COUNT 7.4 10^3/uL (4.0-10.0)
[2018-05-03 19:44] LABS: FRAGMENTS POS FLAG
== END ==
LOC: M SFHCPLAZ 15:05
DX: D50.0 Iron deficiency anemia secondary to blood loss (chronic) (principal); Z51.81 Encounter for therapeutic drug level monitoring; Z79.01 Long term (current) use of anticoagulants
CPT/HCPCS: 83550

== ENCOUNTER 2018-05-05 17:27 | Outpatient (CLI) | payer OTHER ==
[2018-05-05 20:15] LABS: IMMEDIATE SPIN CROSSMATCH 1 2
[2018-05-05] MEDS: ACETAMINOPHEN TAB 650MG DOSE (2X325MG) PO (23:33)
[2018-05-06 02:04] LABS: HEMATOCRIT 30.4 % (36.0-47.0); HEMOGLOBIN 9.2 g/dl (12.0-15.5); MEAN CORPUSCULAR HGB CONC 30.3 g/dl (32.0-36.5); MEAN CORPUSCULAR VOLUME 85.9 fl (80.0-96.0); PLATELET COUNT, AUTOMATED 274 10^3/uL (150-450); RED BLOOD COUNT 3.54 10^6/uL (4.00-5.40); RED CELL DISTRIBUTION WIDTH 14.2 % (11.5-14.5); WHITE BLOOD COUNT 8.1 10^3/uL (4.0-10.0)
== END 2018-05-06 02:10 | disposition home or self-care (01) ==
LOC: M OPCLI4PV 05-06 02:10 → M MSPAV 17:32
PROVIDERS: Orthopaedic Surgery
DX: D62 Acute posthemorrhagic anemia (principal)
CPT/HCPCS: 36430

== ENCOUNTER → 2018-05-24 | Outpatient (REF) | payer OTHER ==
[2018-05-24 11:51] LABS: BASO % 0.4 % (0.0-1.0); EOS % 0.6 % (0.0-3.0); HEMATOCRIT 36.1 % (36.0-47.0); HEMOGLOBIN 11.1 g/dl (12.0-15.5); IMMATURE GRANULOCYTE % 1.6 % (0-3.0); LYMPH # 1.8 10^3/uL (1.5-4.5); LYMPH % 27.5 % (24.0-44.0); MEAN CORPUSCULAR HGB CONC 30.7 g/dl (32.0-36.5); MEAN CORPUSCULAR VOLUME 84.5 fl (80.0-96.0); MONO # 0.4 10^3/uL (0.0-0.8); MONO % 5.4 % (0.0-5.0); NEUTROPHILS # 4.3 10^3/uL (1.8-7.7); NEUTROPHILS % 64.5 % (36.0-66.0); PLATELET COUNT, AUTOMATED 272 10^3/uL (150-450); RED BLOOD COUNT 4.27 10^6/uL (4.00-5.40); RED CELL DISTRIBUTION WIDTH 15.9 % (11.5-14.5); RETIC HEMOGLOBIN EQUIVALENT 35.4 pg (24-36); RETICULOCYTE # 64.5 10^9/L (17-77); RETICULOCYTE % 1.5 % (0.5-1.5); WHITE BLOOD COUNT 6.7 10^3/uL (4.0-10.0)
[2018-05-24 12:14] LABS: FERRITIN 31 NG/ML (8-252); IRON (FE) 64 UG/DL (50-170); PERCENT SATURATION 14.6 % (13.2-45.0); TOTAL IRON BINDING CAPACITY 437 UG/DL (250-450)
== END ==
LOC: M SFHCPLAZ 10:06
DX: D50.0 Iron deficiency anemia secondary to blood loss (chronic) (principal)
CPT/HCPCS: 83550

== ENCOUNTER 2018-06-30 06:54 | Day surgery (SDC) | payer OTHER ==
[~2018-06-30] VITALS: Ht 157.5 cm; Wt 105.7 kg
[~2018-06-30 06:54] MED LIST changes: +CYCL10TA; +DOCU100C16 PO; -FLOV50AE IN; +FLOV50AE INH; +GABA-843 PO; +HEPA10009 IJ; +HYDR200T3 PO; +LABE10TAB PO; +NAPR-885 PO; -NAPR500T3 PO; +NS 1,000 ML IV SCH; +OMEP20CA3 PO; +VENTAER IN; -[UNRECOGNIZED DRUG - CODE] IJ
[2018-06-30] MEDS ORDERED: ONDANSETRON 4MG/2ML VIAL (J2405) As Ordered ONE (07:48)
[2018-06-30] MEDS ORDERED: LIDOCAINE 2% INJ 100 MG/5 ML SDV (FOR ANES.) As Ordered ONE (07:56)
[2018-06-30] MEDS ORDERED: PROPOFOL 200 MG/20 ML VIAL As Ordered ONE ×5 (07:56→08:27)
--- NOTE | 2018-06-30 08:36 | ROOR ---
Patient Name: Kourtney Francisco Procedure Date: 06/30/2018 7:57 AM Date of : 1985 Age: 32 Room: [facility] Gender: Female Note Status: Finalized Procedure: Colonoscopy Indications: Rectal bleeding Providers: Inderjit Reyes MD Referring MD: Riaz Zavala MD Requesting Provider: Medicines: Monitored Anesthesia Care Complications: No immediate complications. Procedure: Pre-Anesthesia Assessment: - Prior to the procedure, a History and Physical was performed, and patient medications and allergies were reviewed. The patient is competent. The risks and benefits of the procedure and the sedation options and risks were discussed with the patient. All questions were answered and informed consent was obtained. Patient identification and proposed procedure were verified by the physician, the nurse and the global mobility specialist in the procedure room. Mental Status Examination: alert and oriented. Airway Examination: normal oropharyngeal airway and neck mobility. Respiratory Examination: clear to auscultation. CV Examination: normal. Prophylactic Antibiotics: The patient does not require prophylactic antibiotics. Prior Anticoagulants: The patient has taken no previous anticoagulant or antiplatelet agents. ASA Grade Assessment: II - A patient with mild systemic disease. After reviewing the risks and benefits, the patient was deemed in satisfactory condition to undergo the procedure. The anesthesia plan was to use monitored anesthesia care (MAC). Immediately prior to administration of medications, the patient was re-assessed for adequacy to receive sedatives. The heart rate, respiratory rate, oxygen saturations, blood pressure, adequacy of pulmonary ventilation, and response to care were monitored throughout the procedure. The physical status of the patient was re-assessed after the procedure. The Colonoscope was introduced through the anus and advanced to the cecum, identified by appendiceal orifice and ileocecal valve. The colonoscopy was performed without difficulty. The patient tolerated the procedure well. The quality of the bowel preparation was excellent. Findings: Hemorrhoids were found on perianal exam. engorged mixed externaland internal hemorrhoids at right anterolateral quadrant with contact bleeding - 2 bands placed at the end of the procedure, At the end of the procedure, patient remained positioned a lighted proctoscope was placed and 2 bands were directed above the dentate line at the right lateral quadrant hemorrhoids The entire examined colon appeared normal. External and internal hemorrhoids were found during retroflexion. The hemorrhoids were medium-sized. A hemorrhoid was isolated with anoscopy. The ligator was positioned over the hemorrhoid at the 9 o'clock position. Suction was applied and one rubber band was placed over the hemorrhoid. This was checked to make certain that the muscularis was free of the band. The patient tolerated the procedure well. Impression: - Hemorrhoids found on perianal exam. - The entire examined colon is normal. - No specimens collected. Recommendation: - Return to my office in 1 month. Inderjit Reyes MD Inderjit Reyes MD 06/30/2018 8:36:11 AM This report has been signed electronically. Number of Addenda: 0 Note Initiated On: 06/30/2018 7:57 AM Estimated Blood Loss: Estimated blood loss: none. Estimated blood loss was minimal.
[2018-06-30 08:50] VITALS: BP 120/66
[2018-06-30] MEDS ORDERED: ONDANSETRON 4MG/2ML VIAL (J2405) IV ONE (09:00)
== END 2018-06-30 09:06 | disposition home or self-care (01) ==
LOC: M OPP 06:54
PROVIDERS: ATTEND Surgery
DX: K62.5 Hemorrhage of anus and rectum (principal); D64.9 Anemia, unspecified; K64.8 Other hemorrhoids; G47.30 Sleep apnea, unspecified; M79.7 Fibromyalgia; Z79.899 Other long term (current) drug therapy; Z88.2 Allergy status to sulfonamides
CPT/HCPCS: 45398; J2405

== ENCOUNTER → 2018-08-30 | Outpatient (CLI) | payer OTHER ==
[~2018-08-30] MED LIST changes: -NS 1,000 ML IV SCH
[2018-08-30 18:28] LABS: BASO % 0.4 % (0.0-1.0); EOS # 0.1 10^3/uL (0.0-0.50); HEMOGLOBIN 11.9 g/dl (12.0-15.5); LYMPH # 2.6 10^3/uL (1.5-4.5); MEAN CORPUSCULAR HGB CONC 32.2 g/dl (32.0-36.5); MEAN CORPUSCULAR VOLUME 83.9 fl (80.0-96.0); MONO # 0.5 10^3/uL (0.0-0.8); MONO % 5.4 % (0.0-5.0); NEUTROPHILS % 64.7 % (36.0-66.0); PLATELET COUNT, AUTOMATED 271 10^3/uL (150-450); RED BLOOD COUNT 4.41 10^6/uL (4.00-5.40); WHITE BLOOD COUNT 9.3 10^3/uL (4.0-10.0)
[2018-08-30 18:39] LABS: PERCENT SATURATION 47.8 % (13.2-45.0)
[2018-08-30 19:12] LABS: HEMOGLOBIN A1c 5.8 %
== END ==
LOC: M LAB 17:20
PROVIDERS: ATTEND Family Medicine
DX: R73.03 Prediabetes (principal); K92.2 Gastrointestinal hemorrhage, unspecified

== ENCOUNTER → 2018-10-13 | Outpatient (REF) | payer OTHER ==
[2018-10-13 17:04] LABS: HEMOGLOBIN 8.3 g/dl (12.0-15.5); MEAN CORPUSCULAR HEMOGLOBIN 25.4 pg (27.0-33.0); MEAN CORPUSCULAR HGB CONC 30.7 g/dl (32.0-36.5); MEAN CORPUSCULAR VOLUME 82.6 fl (80.0-96.0); PLATELET COUNT, AUTOMATED 307 10^3/uL (150-450); RED BLOOD COUNT 3.27 10^6/uL (4.00-5.40); WHITE BLOOD COUNT 5.8 10^3/uL (4.0-10.0)
[2018-10-13 17:12] LABS: INR 0.95; PROTHROMBIN TIME 12.8 SECONDS (12.1-14.4)
[2018-10-13 17:13] LABS: PARTIAL THROMBOPLASTIN TIME 26.8 SECONDS (25.4-37.6)
[2018-10-13 17:21] LABS: ALBUMIN 4.1 GM/DL (3.2-5.2); ALT/SGPT 30 U/L (12-78); BILIRUBIN,TOTAL 0.6 MG/DL (0.2-1.0); BLOOD UREA NITROGEN 11 MG/DL (7-18); CALCIUM LEVEL 8.8 MG/DL (8.5-10.1); CARBON DIOXIDE LEVEL 28 MEQ/L (21-32); CHLORIDE LEVEL 106 MEQ/L (98-107); CREATININE FOR GFR 0.68 MG/DL (0.55-1.30); GLOMERULAR FILTRATION RATE > 60.0 (>60); GLUCOSE, FASTING 107 MG/DL (70-100); IRON (FE) 27 UG/DL (50-170); PERCENT SATURATION 5.2 % (13.2-45.0); POTASSIUM SERUM 3.7 MEQ/L (3.5-5.1); SODIUM LEVEL 137 MEQ/L (136-145); TOTAL IRON BINDING CAPACITY 515 UG/DL (250-450); TOTAL PROTEIN 7.2 GM/DL (6.4-8.2)
[2018-10-16 16:03] LABS: F8 ACTIVITY FOR F8 PANEL 91 % (57-163); F8 ACTIVITY vWB FOR F8 PANEL 58 % (50-200); F8 ANTIGEN FOR F8 PANEL 92 % (50-200)
== END ==
LOC: M SFHCPLAZ 15:40
PROVIDERS: ATTEND Family Medicine
DX: Z01.810 Encounter for preprocedural cardiovascular examination (principal); D64.9 Anemia, unspecified; N92.0 Excessive and frequent menstruation with regular cycle

== ENCOUNTER → 2018-11-15 | Outpatient (REF) | payer OTHER ==
[2018-11-15 15:56] LABS: BASO % 0.3 % (0.0-1.0); EOS # 0.1 10^3/uL (0.0-0.50); EOS % 1.3 % (0.0-3.0); HEMATOCRIT 34.6 % (36.0-47.0); LYMPH # 1.7 10^3/uL (1.5-4.5); LYMPH % 28.6 % (24.0-44.0); MEAN CORPUSCULAR HEMOGLOBIN 24.7 pg (27.0-33.0); MEAN CORPUSCULAR HGB CONC 28.9 g/dl (32.0-36.5); MEAN CORPUSCULAR VOLUME 85.4 fl (80.0-96.0); MONO # 0.3 10^3/uL (0.0-0.8); MONO % 5.5 % (0.0-5.0); NEUTROPHILS # 3.8 10^3/uL (1.8-7.7); NEUTROPHILS % 63.6 % (36.0-66.0); PLATELET COUNT, AUTOMATED 315 10^3/uL (150-450); RED BLOOD COUNT 4.05 10^6/uL (4.00-5.40)
== END ==
LOC: M SFHCPLAZ 11:50
PROVIDERS: ATTEND Family Medicine
DX: D50.0 Iron deficiency anemia secondary to blood loss (chronic) (principal)

== ENCOUNTER → 2018-12-08 | Outpatient (REF) | payer OTHER ==
[2018-12-08 16:01] LABS: HEMATOCRIT 37.4 % (36.0-47.0); HEMOGLOBIN 11.3 g/dl (12.0-15.5); MEAN CORPUSCULAR HEMOGLOBIN 24.7 pg (27.0-33.0); MEAN CORPUSCULAR HGB CONC 30.2 g/dl (32.0-36.5); MEAN CORPUSCULAR VOLUME 81.8 fl (80.0-96.0); PLATELET COUNT, AUTOMATED 293 10^3/uL (150-450); RED BLOOD COUNT 4.57 10^6/uL (4.00-5.40); WHITE BLOOD COUNT 6.8 10^3/uL (4.0-10.0)
[2018-12-08 16:22] LABS: ALBUMIN 4.1 GM/DL (3.2-5.2); ALT/SGPT 32 U/L (12-78); BILIRUBIN,TOTAL 0.4 MG/DL (0.2-1.0); BLOOD UREA NITROGEN 10 MG/DL (7-18); CALCIUM LEVEL 9.7 MG/DL (8.5-10.1); CARBON DIOXIDE LEVEL 30 MEQ/L (21-32); CHLORIDE LEVEL 102 MEQ/L (98-107); CREATININE FOR GFR 0.71 MG/DL (0.55-1.30); FERRITIN 12 NG/ML (8-252); GLOMERULAR FILTRATION RATE > 60.0 (>60); GLUCOSE, FASTING 79 MG/DL (70-100); IRON (FE) 42 UG/DL (50-170); PERCENT SATURATION 9.1 % (13.2-45.0); POTASSIUM SERUM 4.3 MEQ/L (3.5-5.1); SODIUM LEVEL 136 MEQ/L (136-145); TOTAL IRON BINDING CAPACITY 463 UG/DL (250-450); TOTAL PROTEIN 7.8 GM/DL (6.4-8.2)
== END ==
LOC: M SFHCPLAZ 14:32
PROVIDERS: ATTEND Family Medicine
DX: D50.0 Iron deficiency anemia secondary to blood loss (chronic) (principal)

== ENCOUNTER → 2019-02-08 | Outpatient (REF) | payer OTHER ==
[~2019-02-08] MED LIST changes: +OMEP1CAP73 PO; -OMEP20CA3 PO; -OMEP40CA2 PO; +OMEP40CA97 PO
[2019-02-08 17:21] LABS: HEMATOCRIT 39.9 % (36.0-47.0); HEMOGLOBIN 12.7 g/dl (12.0-15.5); MEAN CORPUSCULAR HEMOGLOBIN 26.9 pg (27.0-33.0); MEAN CORPUSCULAR HGB CONC 31.8 g/dl (32.0-36.5); MEAN CORPUSCULAR VOLUME 84.5 fl (80.0-96.0); PLATELET COUNT, AUTOMATED 267 10^3/uL (150-450); RED BLOOD COUNT 4.72 10^6/uL (4.00-5.40); WHITE BLOOD COUNT 7.2 10^3/uL (4.0-10.0)
[2019-02-08 17:26] LABS: THYROID STIMULATING HORMONE 1.5 uIU/ML (0.358-3.740)
[2019-02-08 17:32] LABS: HEMOGLOBIN A1c 5.9 %
== END ==
LOC: M SFHCPLAZ 15:25
PROVIDERS: ATTEND Family Medicine
DX: E53.8 Deficiency of other specified B group vitamins (principal); R63.1 Polydipsia; J39.2 Other diseases of pharynx

== ENCOUNTER → 2019-06-10 | Outpatient (CLI) | payer OTHER ==
[~2019-06-10] MED LIST changes: +OMEP-172 PO; -OMEP1CAP73 PO
--- NOTE | 2019-06-10 09:39 | REPPI ---
Clinical: Left rib pain Technique: Frontal view of the chest with multiple views of the left hemithorax. Findings: Frontal view of the chest demonstrates no acute cardiopulmonary process. Multiple views of the left hemithorax demonstrates no obvious acute rib fracture or pathology. Impression: Normal left rib series Electronically Signed by Brandon Larkin MD 06/10/2019 09:31 A
--- NOTE | 2019-06-10 09:39 | REPPI ---
Clinical: Asthma and chest pain. Comparison: 06/18/2016. Technique: PA and lateral. Findings: The mediastinum and cardiac silhouette are normal. The lung singh are clear and without acute consolidation, effusion, or pneumothorax. The skeletal structures are intact and normal. Impression: 1. No acute cardiopulmonary process. Electronically Signed by Brandon Larkin MD 06/10/2019 09:30 A
== END ==
LOC: M PLAIMG 09:08
PROVIDERS: ATTEND Family Medicine
DX: J45.41 Moderate persistent asthma with (acute) exacerbation (principal); R07.81 Pleurodynia

== ENCOUNTER → 2019-08-24 | Outpatient (REF) | payer OTHER ==
[~2019-08-24] MED LIST changes: -OMEP-172 PO; +OMEP1CAP73 PO
[2019-08-24 18:55] LABS: BASO % 0.4 % (0.0-1.0); EOS # 0.1 10^3/uL (0.0-0.5); EOS % 0.9 % (0.0-3.0); HEMATOCRIT 41.1 % (36.0-47.0); HEMOGLOBIN 13.7 g/dl (12.0-15.5); LYMPH # 2.3 10^3/uL (1.5-5.0); LYMPH % 25.1 % (24.0-44.0); MEAN CORPUSCULAR HEMOGLOBIN 30.1 pg (27.0-33.0); MEAN CORPUSCULAR HGB CONC 33.3 g/dl (32.0-36.5); MEAN CORPUSCULAR VOLUME 90.3 fl (80.0-96.0); MONO # 0.5 10^3/uL (0.0-0.8); MONO % 5.9 % (0.0-5.0); PLATELET COUNT, AUTOMATED 270 10^3/uL (150-450); RED BLOOD COUNT 4.55 10^6/uL (4.00-5.40)
== END ==
LOC: M LAB REF 18:27
PROVIDERS: ATTEND Internal Medicine Pulmonary Disease
DX: J45.40 Moderate persistent asthma, uncomplicated (principal)

== ENCOUNTER → 2019-10-11 | Outpatient (REF) | payer OTHER ==
[~2019-10-11] MED LIST changes: +CYCL-707; -CYCL10TA
== END ==
LOC: M SFHCPLAZ 11:35
PROVIDERS: ATTEND Family Medicine
DX: B37.0 Candidal stomatitis (principal)

== ENCOUNTER → 2020-01-18 | Outpatient (REF) | payer OTHER ==
[2020-02-16 10:00] LABS: BASO # 0.1 10^3/uL (0.0-0.2); BASO % 0.7 % (0.0-1.0); EOS # 0.1 10^3/uL (0.0-0.5); HEMATOCRIT 42.5 % (36.0-47.0); HEMOGLOBIN 13.8 g/dl (12.0-15.5); LYMPH # 2.4 10^3/uL (1.5-5.0); LYMPH % 27.4 % (24.0-44.0); MEAN CORPUSCULAR HEMOGLOBIN 29.9 pg (27.0-33.0); MEAN CORPUSCULAR HGB CONC 32.5 g/dl (32.0-36.5); MEAN CORPUSCULAR VOLUME 92.2 fl (80.0-96.0); MONO # 0.7 10^3/uL (0.0-0.8); MONO % 7.5 % (0.0-5.0); NEUTROPHILS # 5.5 10^3/uL (1.5-8.5); NEUTROPHILS % 61.9 % (36.0-66.0); PLATELET COUNT, AUTOMATED 250 10^3/uL (150-450); RED BLOOD COUNT 4.61 10^6/uL (4.00-5.40); WHITE BLOOD COUNT 8.9 10^3/uL (4.0-10.0)
[2020-02-27 06:14] LABS: ASPERGILLUS FUMIGATUS AB SEE SEPARATE REPORT; CYTOPLASMIC NEUTROP AB ANCA-C SEE SEPARATE REPORT
[2020-02-27 06:15] LABS: ASPERGILLUS FUMIGATUS ABY SEE SEPARATE REPORT
[2020-03-03 17:05] LABS: BLOOD UREA NITROGEN 9 MG/DL (7-18); CALCIUM LEVEL 9.3 MG/DL (8.5-10.1); CARBON DIOXIDE LEVEL 31 MEQ/L (21-32); CHLORIDE LEVEL 104 MEQ/L (98-107); CREATININE FOR GFR 0.68 MG/DL (0.55-1.30); GLOMERULAR FILTRATION RATE > 60.0 (>60); GLUCOSE, FASTING 76 MG/DL (70-100); HEMOGLOBIN A1c 5.6 %; SODIUM LEVEL 138 MEQ/L (136-145); T UPTAKE 32 % (30-39); THYROXINE (T4) 9.4 UG/DL (4.5-12.0)
== END ==
LOC: M PLALAB 07:21
PROVIDERS: ATTEND Internal Medicine Pulmonary Disease
DX: J45.50 Severe persistent asthma, uncomplicated (principal)

== ENCOUNTER → 2020-03-02 | Outpatient (CLI) | payer OTHER ==
--- NOTE | 2020-03-09 06:55 | SLEEPHOME ---
DATE: 03/02/2020 ORDERED BY: Marlene Vidales MD Diagnostic home sleep testing was performed due to concern for the obstructive sleep apnea syndrome. Nine hours and 59 minutes of data were reviewed. There were 4 hours and 22 minutes marked as time in bed. During the interval marked time in bed, there were 34 respiratory events identified of 10 seconds in duration or greater for a respiratory event index of 7.8. The events were obstructive. Baseline pulse rate 83, pulse rate range 64-110, baseline saturation 93%, saturations fell to 86%. Testing was performed in both the supine and non-supine positions. IMPRESSION: Abnormal home sleep testing with repetitive respiratory events and oxygen desaturations to 86% with a respiratory event index of 7.8 is consistent with the obstructive sleep apnea syndrome. RECOMMENDATION: The patient should be encouraged to undergo a formal sleep evaluation. MTDD
== END ==
LOC: M SLEEP HO 12:22
PROVIDERS: ATTEND Internal Medicine Pulmonary Disease
DX: G47.30 Sleep apnea, unspecified (principal)

== ENCOUNTER → 2020-03-16 | Outpatient (REF) | payer OTHER | LOC: M LAB REF 18:09 | PROVIDERS: ATTEND Dermatology | DX: D23.5 Other benign neoplasm of skin of trunk (principal) ==

== ENCOUNTER → 2021-02-19 | Outpatient (CLI) | payer OTHER ==
[~2021-02-19] MED LIST changes: +GABA-282 PO; -GABA-843 PO; +LABE100T4 PO; -LABE10TAB PO; +OMEP40CA4 PO; -OMEP40CA97 PO
[2021-02-19 18:10] LABS: HEMATOCRIT 43.6 % (36.0-47.0); HEMOGLOBIN 14.2 g/dl (12.0-15.5); MEAN CORPUSCULAR HGB CONC 32.6 g/dl (32.0-36.5); PLATELET COUNT, AUTOMATED 279 10^3/uL (150-450); RED BLOOD COUNT 4.74 10^6/uL (4.00-5.40); WHITE BLOOD COUNT 8.8 10^3/uL (4.0-10.0)
[2021-02-19 18:27] LABS: HEMOGLOBIN A1c 5.7 %
[2021-02-19 18:50] LABS: PERCENT SATURATION 14.9 % (13.2-45.0); TOTAL 25(OH) VITAMIN D 25.8 NG/ML (30.0-100.0)
== END ==
LOC: M PLALAB 15:39
PROVIDERS: ATTEND Family Medicine
DX: Z68.39 Body mass index [BMI] 39.0-39.9, adult (principal); E55.9 Vitamin D deficiency, unspecified; Z13.1 Encounter for screening for diabetes mellitus

== ENCOUNTER → 2022-01-22 | Outpatient (CLI) | payer OTHER ==
[~2022-01-22] MED LIST changes: -LABE100T4 PO; +LABE100T6 PO
== END ==
LOC: M EKG 16:25
PROVIDERS: ATTEND Internal Medicine Critical Care Medicine
DX: R06.00 Dyspnea, unspecified (principal)

== ENCOUNTER → 2022-02-03 | Outpatient (CLI) | payer OTHER ==
[2022-02-03 13:37] LABS: BASO % 0.4 % (0.0-1.0); EOS # 0.1 10^3/uL (0.0-0.5); EOS % 0.8 % (0.0-3.0); HEMATOCRIT 39.8 % (36.0-47.0); HEMOGLOBIN 13.3 g/dl (12.0-15.5); LYMPH # 2.1 10^3/uL (1.5-5.0); MEAN CORPUSCULAR HEMOGLOBIN 29.8 pg (27.0-33.0); MEAN CORPUSCULAR HGB CONC 33.4 g/dl (32.0-36.5); MEAN CORPUSCULAR VOLUME 89.2 fl (80.0-96.0); MONO # 0.5 10^3/uL (0.0-0.8); MONO % 5.9 % (2.0-8.0); NEUTROPHILS # 5.2 10^3/uL (1.5-8.5); NEUTROPHILS % 66.1 % (36.0-66.0); PLATELET COUNT, AUTOMATED 260 10^3/uL (150-450); RED BLOOD COUNT 4.46 10^6/uL (4.00-5.40); WHITE BLOOD COUNT 7.9 10^3/uL (4.0-10.0)
[2022-02-03 14:09] LABS: HEMOGLOBIN A1c 5.6 %
[2022-02-03 14:39] LABS: ERYTHROCYTE SEDIMENTATION RATE 11 mm/hr (0-20)
[2022-02-03 14:41] LABS: ALT/SGPT 24 U/L (12-78); BILIRUBIN,TOTAL 0.9 MG/DL (0.2-1.0); BLOOD UREA NITROGEN 9 MG/DL (7-18); C REACTIVE PROTEIN QUANTITATIV 0.37 MG/DL (0.00-0.30); CALCIUM LEVEL 9.3 MG/DL (8.5-10.1); CARBON DIOXIDE LEVEL 28 MEQ/L (21-32); CHLORIDE LEVEL 107 MEQ/L (98-107); CREATININE FOR GFR 0.66 MG/DL (0.55-1.30); GLOMERULAR FILTRATION RATE > 60.0 (>60); GLUCOSE, FASTING 97 MG/DL (70-100); POTASSIUM SERUM 4.4 MEQ/L (3.5-5.1); RHEUMATOID FACTOR QUANT < 10.0 IU/ML (<15.0); SODIUM LEVEL 137 MEQ/L (136-145); TOTAL PROTEIN 7.5 GM/DL (6.4-8.2); URIC ACID 4.2 MG/DL (2.6-6.0)
== END ==
LOC: M LAB 13:02
PROVIDERS: ATTEND Physician Assistant
DX: R73.9 Hyperglycemia, unspecified (principal); I10 Essential (primary) hypertension; M35.9 Systemic involvement of connective tissue, unspecified; Z83.49 Family history of other endocrine, nutritional and metabolic diseases

== ENCOUNTER → 2022-04-21 | Outpatient (CLI) | payer OTHER | LOC: M CARPUL 08:37 | PROVIDERS: ATTEND Physician Assistant | DX: R07.9 Chest pain, unspecified (principal) ==

== ENCOUNTER → 2022-08-29 | Outpatient (REF) | payer OTHER ==
[2022-08-29 18:04] LABS: BASO % 0.4 % (0.0-1.0); EOS # 0.1 10^3/uL (0.0-0.5); EOS % 1.2 % (0.0-3.0); HEMATOCRIT 40.3 % (36.0-47.0); HEMOGLOBIN 13.3 g/dl (12.0-15.5); LYMPH # 2.9 10^3/uL (1.5-5.0); LYMPH % 29.3 % (24.0-44.0); MEAN CORPUSCULAR HEMOGLOBIN 30.1 pg (27.0-33.0); MEAN CORPUSCULAR VOLUME 91.2 fl (80.0-96.0); MONO # 0.7 10^3/uL (0.0-0.8); MONO % 6.7 % (2.0-8.0); NEUTROPHILS % 61.8 % (36.0-66.0); PLATELET COUNT, AUTOMATED 286 10^3/uL (150-450); RED BLOOD COUNT 4.42 10^6/uL (4.00-5.40); WHITE BLOOD COUNT 9.8 10^3/uL (4.0-10.0)
[2022-08-29 18:26] LABS: ERYTHROCYTE SEDIMENTATION RATE 16 mm/hr (0-20)
[2022-08-29 18:30] LABS: URIC ACID 3.9 MG/DL (3.1-7.8)
[2022-08-29 18:31] LABS: C REACTIVE PROTEIN QUANTITATIV < 0.40 MG/DL (<1.0)
[2022-08-29 18:33] LABS: RHEUMATOID FACTOR QUANT < 3.5 IU/ML (<14)
[2022-08-29 18:41] LABS: ALKALINE PHOSPHATASE 58 U/L (46-116); ALT/SGPT 22 U/L (7.0-40); AST/SGOT 13 U/L (<34); BILIRUBIN,TOTAL 0.4 MG/DL (0.3-1.2); BLOOD UREA NITROGEN 9 MG/DL (9-23); CALCIUM LEVEL 9.7 MG/DL (8.5-10.1); CARBON DIOXIDE LEVEL 29 MMOL/L (20-31); CHLORIDE LEVEL 102 MMOL/L (98-107); CHOLESTEROL LEVEL 180 MG/DL (<200); CHOLESTEROL RISK RATIO 4.56 (<5); CREATININE FOR GFR 0.63 MG/DL (0.55-1.30); FREE T4 1.05 NG/DL (0.89-1.76); GLOMERULAR FILTRATION RATE > 60.0 (>60); GLUCOSE, FASTING 85 MG/DL (60-100); HDL CHOLESTEROL 39.4 MG/DL (>40); LDL CHOLESTEROL 82.4 MG/DL (<100); NON-HDL-C 140.6 MG/DL; SODIUM LEVEL 137 MMOL/L (136-145); TOTAL 25(OH) VITAMIN D 35.7 NG/ML (20.0-100.0); TRIGLYCERIDES LEVEL 291 MG/DL (<150); VITAMIN B12 LEVEL 337 PG/ML (211-911)
[2022-08-29 18:59] LABS: HEMOGLOBIN A1c 5.4 % (4.0-6.0)
== END ==
LOC: M SFHCPLAZ 17:09
PROVIDERS: ATTEND Physician Assistant
DX: Z86.39 Personal history of other endocrine, nutritional and metabolic disease (principal); E55.9 Vitamin D deficiency, unspecified; I10 Essential (primary) hypertension; M35.9 Systemic involvement of connective tissue, unspecified; E66.01 Morbid (severe) obesity due to excess calories

== ENCOUNTER → 2023-02-09 | Outpatient (CLI) | payer OTHER ==
[~2023-02-09] MED LIST changes: -HYDR200T3 PO; +HYDR200T46 PO
[2023-02-09 13:45] LABS: BASO % 0.6 % (0.0-1.0); EOS # 0.1 10^3/uL (0.0-0.5); EOS % 1.4 % (0.0-3.0); HEMATOCRIT 38.7 % (36.0-47.0); HEMOGLOBIN 12.8 g/dl (12.0-15.5); LYMPH # 1.9 10^3/uL (1.5-5.0); LYMPH % 28.3 % (24.0-44.0); MEAN CORPUSCULAR HEMOGLOBIN 30.3 pg (27.0-33.0); MEAN CORPUSCULAR HGB CONC 33.1 g/dl (32.0-36.5); MEAN CORPUSCULAR VOLUME 91.5 fl (80.0-96.0); MONO # 0.3 10^3/uL (0.0-0.8); MONO % 4.7 % (2.0-8.0); NEUTROPHILS # 4.2 10^3/uL (1.5-8.5); NEUTROPHILS % 64.2 % (36.0-66.0); PLATELET COUNT, AUTOMATED 256 10^3/uL (150-450); RED BLOOD COUNT 4.23 10^6/uL (4.00-5.40); WHITE BLOOD COUNT 6.5 10^3/uL (4.0-10.0)
[2023-02-09 13:46] LABS: APPEARANCE, URINE CLEAR (CLEAR); BACTERIA, URINE AUTO NEGATIVE (NEGATIVE); BILIRUBIN, URINE AUTO NEGATIVE (NEGATIVE); BLOOD, URINE BLOOD NEGATIVE (NEGATIVE); COLOR, URINE STRAW (YELLOW); GLUCOSE, URINE (UA) AUTO NEGATIVE (NEGATIVE); KETONE, URINE AUTO NEGATIVE (NEGATIVE); LEUKOCYTE ESTERASE, URINE AUTO NEGATIVE (NEGATIVE); NITRITE, URINE AUTO NEGATIVE (NEGATIVE); PROTEIN, URINE AUTO NEGATIVE (NEGATIVE); RBC, URINE AUTO 0 /HPF (0-3); SQUAMOUS EPITHELIAL CELL UR AU 5 /HPF (0-6); UROBILINOGEN, URINE AUTO 0.2 mg/dL (0.0-2.0); WBC, URINE AUTO 0 /HPF (0-3)
[2023-02-09 14:08] LABS: C REACTIVE PROTEIN QUANTITATIV < 0.40 MG/DL (<1.0)
[2023-02-09 14:09] LABS: CREATININE,RANDOM URINE 52.5 MG/DL
[2023-02-09 14:09] LABS: COMPLEMENT C3 142.5 MG/DL (84.0-160.0); COMPLEMENT C4 42.6 MG/DL (12-36); CPK CREATINE PHOSPHOKINASE 88 U/L (34-145); LDH LACTATE DEHYDROGENASE 141 U/L (120-246)
[2023-02-09 14:10] LABS: ALBUMIN 3.7 G/DL (3.2-5.2); ALKALINE PHOSPHATASE 59 U/L (46-116); ALT/SGPT 18 U/L (7.0-40); AST/SGOT < 8 U/L (<34); BILIRUBIN,TOTAL 0.6 MG/DL (0.3-1.2); BLOOD UREA NITROGEN 12 MG/DL (9-23); CALCIUM LEVEL 9.1 MG/DL (8.5-10.1); CARBON DIOXIDE LEVEL 27 MMOL/L (20-31); CHLORIDE LEVEL 105 MMOL/L (98-107); GLOMERULAR FILTRATION RATE > 60.0 (>60); GLUCOSE, FASTING 142 MG/DL (60-100); SODIUM LEVEL 137 MMOL/L (136-145); TOTAL PROTEIN 6.9 G/DL (5.7-8.2)
[2023-02-09 14:10] LABS: TOTAL PROTEIN,RANDOM URINE < 6.0 MG/DL (0.0-14.0)
[2023-02-09 14:25] LABS: ERYTHROCYTE SEDIMENTATION RATE 11 mm/hr (0-20)
== END ==
LOC: M RAD 12:12
PROVIDERS: ATTEND Internal Medicine Rheumatology
DX: D68.61 Antiphospholipid syndrome (principal); M35.3 Polymyalgia rheumatica; M35.00 Sjogren syndrome, unspecified

== ENCOUNTER → 2023-07-03 | Outpatient (CLI) | payer OTHER ==
[2023-07-03 18:50] LABS: HEMATOCRIT 39.1 % (36.0-47.0); MEAN CORPUSCULAR HGB CONC 33.2 g/dl (32.0-36.5); MEAN CORPUSCULAR VOLUME 90.1 fl (80.0-96.0); PLATELET COUNT, AUTOMATED 280 10^3/uL (150-450); RED BLOOD COUNT 4.34 10^6/uL (4.00-5.40); WHITE BLOOD COUNT 6.4 10^3/uL (4.0-10.0)
[2023-07-03 19:16] LABS: ALBUMIN 3.9 G/DL (3.2-5.2); ALKALINE PHOSPHATASE 52 U/L (46-116); ALT/SGPT 39 U/L (7.0-40); AST/SGOT 13 U/L (<34); BILIRUBIN,TOTAL 0.8 MG/DL (0.3-1.2); BLOOD UREA NITROGEN 12 MG/DL (9-23); CALCIUM LEVEL 9.2 MG/DL (8.5-10.1); CARBON DIOXIDE LEVEL 28 MMOL/L (20-31); CHLORIDE LEVEL 103 MMOL/L (98-107); GLOMERULAR FILTRATION RATE > 60.0 (>60); GLUCOSE, FASTING 93 MG/DL (60-100); SODIUM LEVEL 136 MMOL/L (136-145); TOTAL PROTEIN 6.9 G/DL (5.7-8.2)
[2023-07-03 19:18] LABS: FERRITIN 26.6 NG/ML (7.3-270.7); TOTAL 25(OH) VITAMIN D 33.9 NG/ML (20.0-100.0); VITAMIN B12 LEVEL 704 PG/ML (211-911)
== END ==
LOC: M LAB 16:45
PROVIDERS: ATTEND Family Medicine
DX: E61.1 Iron deficiency (principal); Z86.39 Personal history of other endocrine, nutritional and metabolic disease; E55.9 Vitamin D deficiency, unspecified

== ENCOUNTER → 2023-07-03 | Outpatient (CLI) | payer OTHER ==
[2023-07-03 19:16] LABS: ALBUMIN 3.8 G/DL (3.2-5.2); ALKALINE PHOSPHATASE 51 U/L (46-116); ALT/SGPT 39 U/L (7.0-40); AST/SGOT 16 U/L (<34); BASO % 0.5 % (0.0-1.0); BILIRUBIN,TOTAL 0.8 MG/DL (0.3-1.2); BLOOD UREA NITROGEN 12 MG/DL (9-23); CALCIUM LEVEL 9.6 MG/DL (8.5-10.1); CARBON DIOXIDE LEVEL 29 MMOL/L (20-31); CHLORIDE LEVEL 104 MMOL/L (98-107); CREATININE FOR GFR 0.61 MG/DL (0.55-1.30); EOS # 0.1 10^3/uL (0.0-0.5); EOS % 1.6 % (0.0-3.0); GLOMERULAR FILTRATION RATE > 60.0 (>60); GLUCOSE, FASTING 92 MG/DL (60-100); HEMATOCRIT 39.1 % (36.0-47.0); LYMPH # 2.1 10^3/uL (1.5-5.0); LYMPH % 33.1 % (24.0-44.0); MEAN CORPUSCULAR HEMOGLOBIN 30.1 pg (27.0-33.0); MEAN CORPUSCULAR HGB CONC 33.2 g/dl (32.0-36.5); MEAN CORPUSCULAR VOLUME 90.5 fl (80.0-96.0); MONO # 0.4 10^3/uL (0.0-0.8); MONO % 6.7 % (2.0-8.0); NEUTROPHILS # 3.7 10^3/uL (1.5-8.5); NEUTROPHILS % 57.5 % (36.0-66.0); PLATELET COUNT, AUTOMATED 278 10^3/uL (150-450); POTASSIUM SERUM 4.1 MMOL/L (3.5-5.1); RED BLOOD COUNT 4.32 10^6/uL (4.00-5.40); SODIUM LEVEL 138 MMOL/L (136-145); TOTAL PROTEIN 6.9 G/DL (5.7-8.2); WHITE BLOOD COUNT 6.4 10^3/uL (4.0-10.0)
[2023-07-03 19:43] LABS: HIV 1&2 SCREEN NEGATIVE (NEGATIVE)
[2023-07-03 19:51] LABS: HEPATITIS B CORE ANTIBODY IGM NEGATIVE (NEGATIVE); HEPATITIS C VIRUS ABY INDEX 0.06 INDEX (<0.8)
== END ==
LOC: M LAB 16:39
PROVIDERS: ATTEND Nurse Practitioner Family
DX: L73.2 Hidradenitis suppurativa (principal)

== ENCOUNTER → 2024-08-25 | Outpatient (REF) | payer OTHER ==
[~2024-08-25] MED LIST changes: +GABA-1172 PO; -GABA-282 PO
[2024-08-25 12:29] LABS: BASO % 0.5 % (0.0-1.0); EOS # 0.1 10^3/uL (0.0-0.5); HEMATOCRIT 37.4 % (36.0-47.0); HEMOGLOBIN 12.4 g/dl (12.0-15.5); LYMPH # 2.4 10^3/uL (1.5-5.0); LYMPH % 30.4 % (24.0-44.0); MEAN CORPUSCULAR HEMOGLOBIN 29.7 pg (27.0-33.0); MEAN CORPUSCULAR HGB CONC 33.2 g/dl (32.0-36.5); MEAN CORPUSCULAR VOLUME 89.7 fl (80.0-96.0); MONO # 0.5 10^3/uL (0.0-0.8); NEUTROPHILS # 4.8 10^3/uL (1.5-8.5); PLATELET COUNT, AUTOMATED 276 10^3/uL (150-450); RED BLOOD COUNT 4.17 10^6/uL (4.00-5.40); WHITE BLOOD COUNT 7.8 10^3/uL (4.0-10.0)
[2024-08-25 12:38] LABS: ERYTHROCYTE SEDIMENTATION RATE 8 mm/hr (0-20)
[2024-08-25 13:03] LABS: ALKALINE PHOSPHATASE 61 U/L (35-104); ALT/SGPT 37 U/L (7.0-40); AST/SGOT 15 U/L (<34); BILIRUBIN,TOTAL 0.4 MG/DL (0.3-1.2); BLOOD UREA NITROGEN 12 MG/DL (9-23); C REACTIVE PROTEIN QUANTITATIV < 0.50 MG/DL (<1.0); CALCIUM LEVEL 9.6 MG/DL (8.5-10.1); CARBON DIOXIDE LEVEL 30 MMOL/L (20-31); CHLORIDE LEVEL 104 MMOL/L (98-107); CREATININE FOR GFR 0.67 MG/DL (0.55-1.30); GLOMERULAR FILTRATION RATE > 60.0 (>60); GLUCOSE, FASTING 96 MG/DL (60-100); POTASSIUM SERUM 5.5 MMOL/L (3.5-5.1); SODIUM LEVEL 140 MMOL/L (136-145); TOTAL PROTEIN 7.2 G/DL (5.7-8.2)
[2024-08-25 13:07] LABS: COMPLEMENT C3 177.1 MG/DL (84.0-160.0)
== END ==
LOC: M PLALAB 10:04
PROVIDERS: ATTEND Internal Medicine Rheumatology
DX: D68.61 Antiphospholipid syndrome (principal); M35.3 Polymyalgia rheumatica; M35.00 Sjogren syndrome, unspecified; M32.9 Systemic lupus erythematosus, unspecified

== ENCOUNTER → 2024-08-25 | Outpatient (REF) | payer OTHER ==
[2024-08-25 12:40] LABS: HEMOGLOBIN A1c 5.7 % (4.0-6.0)
[2024-08-25 13:01] LABS: CHOLESTEROL RISK RATIO 3.86 (<5); HDL CHOLESTEROL 45.3 MG/DL (>40); LDL CHOLESTEROL 87.3 MG/DL (<100); NON-HDL-C 129.7 MG/DL
== END ==
LOC: M PLALAB 10:02
PROVIDERS: ATTEND Family Medicine
DX: E66.01 Morbid (severe) obesity due to excess calories (principal); I10 Essential (primary) hypertension

== ENCOUNTER → 2024-09-02 | Outpatient (REF) | payer OTHER ==
[2024-09-02 15:30] LABS: APPEARANCE, URINE HAZY (CLEAR); BACTERIA, URINE AUTO NEGATIVE (NEGATIVE); BILIRUBIN, URINE AUTO NEGATIVE (NEGATIVE); BLOOD, URINE BLOOD NEGATIVE (NEGATIVE); COLOR, URINE YELLOW (YELLOW); GLUCOSE, URINE (UA) AUTO NEGATIVE (NEGATIVE); KETONE, URINE AUTO NEGATIVE (NEGATIVE); LEUKOCYTE ESTERASE, URINE AUTO NEGATIVE (NEGATIVE); NITRITE, URINE AUTO NEGATIVE (NEGATIVE); PROTEIN, URINE AUTO NEGATIVE (NEGATIVE); RBC, URINE AUTO 1 /HPF (0-3); SPECIFIC GRAVITY URINE AUTO 1.014 (1.002-1.035); SQUAMOUS EPITHELIAL CELL UR AU 11 /HPF (0-6); UROBILINOGEN, URINE AUTO 0.2 mg/dL (0.0-2.0); WBC, URINE AUTO 0 /HPF (0-3)
[2024-09-02 16:17] LABS: CREATININE,RANDOM URINE 75.1 MG/DL
== END ==
LOC: M SFHCRHEU 11:38
PROVIDERS: ATTEND Internal Medicine Rheumatology
DX: D68.61 Antiphospholipid syndrome (principal); M35.3 Polymyalgia rheumatica; M35.00 Sjogren syndrome, unspecified; M32.9 Systemic lupus erythematosus, unspecified